=== PATIENT | male | born 1945 | race Caucasian/White ===

== ENCOUNTER 2020-10-06 14:41 | Inpatient (IN) | payer MEDICARE, OTHER, SELFPAY ==
--- NOTE | ~2020-10-06 | XR_ITS ---
EXAMINATION: XR chest 2V DATE: 10/07/2020 18:19 INDICATION: Shortness of breath, pneumonia TECHNIQUE: AP and lateral views of the chest are obtained. COMPARISON: 1104 hours FINDINGS: Right basilar airspace opacities persist without significant change. There is no pleural ef fusion or pneumothorax. The cardiomediastinal silhouette is normal. There is moderate thoracic spondy losis. The nasogastric tube has been removed. IMPRESSION: 1. Stable right basilar airspace opacities, consistent with pneumonia. Reviewed, dictated and finalized at location A. HOLDER
--- NOTE | ~2020-10-06 | XR_ITS ---
EXAMINATION: XR abdomen obstructive series DATE: 10/07/2020 05:57 INDICATION: Small bowel obstruction. TECHNIQUE: Upright and supine views of the abdomen were obtained. COMPARISON: CT abdomen and pelvis 10/06/2020 FINDINGS: There is dilated small bowel in the midabdomen. The colon is decompressed. No free intraper itoneal gas. The nasogastric tube tip is in the stomach. There are airspace opacities in right mid an d lower lung zones. Calcified right lung nodules are consistent with old granulomatous disease. A bip olar right hip hemiarthroplasty is noted. IMPRESSION: 1. Dilated small bowel in the midabdomen, consistent with small bowel obstruction. 2. Airspace opacities in right mid and lower lung zones, consistent with pneumonia. Reviewed, dictated and finalized at location A. ACCOUNTING CLERK IMPRESSION: 1. Dilated small bowel in the midabdomen, consistent with small bowel obstructi on. 2. Airspace opacities in right mid and lower lung zones, consistent with pneumo bautista.
--- NOTE | ~2020-10-06 | XR_ITS ---
EXAMINATION: XR chest 2V DATE: 10/07/2020 11:12 INDICATION: Pneumonia. TECHNIQUE: Frontal and lateral views of the chest were obtained on 3 radiographs. COMPARISON: Chest 2 views 08/21/2018, CT abdomen and pelvis 10/06/2020 FINDINGS: Calcified right lung nodules are consistent with old granulomatous disease. There are airsp tia opacities in right lower lung zone, consistent with pneumonia. No pleural effusion or pneumothora x. The heart size is normal. There is oral contrast in the esophagus and stomach. The distal tip of t he nasogastric tube is not visible, but is at least to the stomach. IMPRESSION: 1. Airspace opacities in right lower lung zone, consistent with pneumonia. Reviewed, dictated and finalized at location A. ER SPECIALISTS
--- NOTE | ~2020-10-06 | XR_ITS ---
EXAMINATION: XR abdomen NG/feed tube insert INDICATION: Nasogastric tube placement, small bowel obstruction. TECHNIQUE: Portable AP KUB-NG at 1944hours COMPARISON: None available FINDINGS: The nasogastric tube is the stomach. There are minimal opacities in the right lung base. IMPRESSION: 1. Nasogastric tube in the stomach. Reviewed, dictated and finalized at location A. TRICAL ELECTRONICS TECHNICIAN
--- NOTE | ~2020-10-06 | CT_ITS ---
EXAMINATION: CT abdomen pelvis w con INDICATION: Epigastric pain TECHNIQUE: Computed tomographic images of the abdomen and pelvis were obtained after the administrati on of 100 cc of Omnipaque 350 intravenous contrast. The dose-length product (DLP) was 804.74 mGy-cm. Automated exposure control and iterative reconstruction technique were employed. COMPARISON: 09/29/2014 FINDINGS: There are patchy airspace opacities of the right middle and lower lobes. The heart size is normal. There is a tiny right posterior diaphragmatic hernia containing fat. The liver, pancreas, gal lbladder, and adrenal glands are normal. Punctate calcifications in an otherwise normal spleen likely represent healed granulomatous disease. There are changes of interval left nephrectomy. A 2 cm cyst is present in the right mid kidney. There are no pathologically enlarged abdominal lymph nodes. The s tomach, duodenum and much of the jejunum are dilated. There is an abrupt transition point in the mida bdomen with decompression of the small bowel beyond the transition point. No free intraperitoneal gas is identified. Small bowel feces sign is seen proximal to the transition point. The appendix is norm al. Colonic diverticulosis is present without evidence of diverticulitis. There are changes of right hip hemiarthroplasty. There is severe lumbar spondylosis. IMPRESSION: 1. Small bowel obstruction with transition point in the midabdomen. 2. Changes of interval left nephrectomy. Reviewed, dictated and finalized at location A. IRATORY COORDINATOR
--- NOTE | ~2020-10-06 | XR_ITS ---
EXAMINATION: XR sm bowel follow through WS EXAM DATE: 10/07/2020 11:12 INDICATION: Small bowel obstruction . TECHNIQUE: [employer] radiograph was acquired. Small bowel series was performed with water-soluble contr ast solution. Spot images of the terminal ileum were acquired. A total of 6 images were obtained wit h 0.0 minutes fluoroscopy time. Relation with CT abdomen pelvis 10/06/2020. FINDINGS: On the 15 minute projection contrast within stomach and moderately distended jejunum. This progresses on the 30 minute and 1 hour projections into the normal calibered ileum. On the 1.5 hour e xam there is a large amount of contrast within the colon. Normal transit time. IMPRESSION: Moderately distended jejunum, normal transit time 1.5 hours. Resolving or partial small bowel obstruction. Reviewed, dictated and finalized at location A. [employer] DES[employer] CON[employer]CTION IMPRESSION: Moderately distended jejunum, normal transit time 1.5 hours. Resol ving or partial small bowel obstruction.
[2020-10-06 15:13] VITALS: BP 132/64; PULSE 98; RESP 20; TEMP 36.8; O2SAT 94
[2020-10-06 15:37] LABS: Basophils Percent Auto 0.3 % (0.2-1.2); Eosinophils Percent Auto 0.2 % (0-4.4); Hematocrit 32.7 % (42.0-52.0); Hemoglobin 10.3 g/dL (14.0-18.0); Immature Granulocyte Absolute 0.08 K/mm3 (0.00-0.031); Immature Granulocyte Percent A 0.6 % (0-0.5); Lymphocytes Absolute Auto 0.63 K/mm3 (0.9-3.2); Lymphocytes Percent Auto 4.4 % (18.3-44.2); Mean Corpuscular HGB Conc 31.5 g/dl (32-36); Mean Corpuscular Hemoglobin 28.1 pg (26-34); Mean Corpuscular Volume 89.1 fl (80-100); Mean Platelet Volume 8.7 fl (7.4-10.4); Monocytes Absolute Auto 0.8 K/mm3 (0.1-0.6); Monocytes Percent Auto 5.4 % (2.6-8.5); Neutrophils Absolute Auto 12.7 K/mm3 (1.3-6.7); Neutrophils Percent Auto 89.1 % (45.5-73.1); Platelet Count Result 505 k/mm3 (150-375); Red Blood Count 3.67 M/mm3 (4.6-6.20); Red Cell Distribution Width 13.3 % (11.5-14.5); White Blood Count 14.2 K/mm3 (4.5-10.0)
[2020-10-06 15:46] LABS: Alanine Aminotransferase 13 U/L (4-50); Albumin Level 3.9 g/dL (3.5-5.1); Alkaline Phosphatase 130 U/L (38-126); Anion Gap 6 mmol/L (8-16); Aspartate Amino Transferase 29 U/L (17-59); Bilirubin,Total 0.3 mg/dL (0.2-1.3); Blood Urea Nitrogen 27 mg/dL (9-20); Calcium 9.1 mg/dL (8.4-10.2); Carbon Dioxide 31 mmol/L (22-30); Chloride 104 mmol/L (98-107); Estimated CRCL calculation 37 ml/min; Estimated Glomerular Filt Rate 37; Glucose 138 mg/dL (75-110); Lipase 230 U/L (23-300); Potassium 4.1 mmol/L (3.4-5.0); Sodium 141 mmol/L (137-145)
--- NOTE | 2020-10-06 17:44 | ED.ABDPAIN ---
HPI - Abdominal Pain General Chief Complaint: Abdominal Pain Stated Complaint: N/V x 1 day, weak Time Seen by Provider: 10/06/20 17:38 History of Present Illness HPI narrative: Patient is a 75-year-old male who presents ER with nausea and vomiting for 1 day. Has not been able To keep down food or water. Associated with epigastric pain/nausea. No fevers or chills or sweats. He has not passed any stool since this began. No history of bowel obstruction diverticulitis. No urinary symptoms. Has taken Pepto-Bismol without relief. Related Data Home Medications Medication Instructions Recorded Confirmed carbidopa-levodopa 2 tablet PO QID 10/06/20 10/06/20 diclofenac sodium 75 mg PO BID 10/06/20 10/06/20 furosemide 20 mg PO DAILY PRN 10/06/20 10/06/20 gemfibrozil 600 mg PO BID 10/06/20 10/06/20 Allergies Allergy/AdvReac Type Severity Reaction Status Date / Time No Known Allergies Allergy Verified 10/06/20 22:04 Review of Systems Review of Systems: All systems reviewed & are unremarkable except as noted in HPI and below Constitutional: Constitutional: Denies chills, Denies fever(s) and Denies weakness ENT: Reports vertigo Cardiovascular: Cardiovascular: Reports no additional cardiovascular complaints and Denies chest pain Respiratory: Respiratory: Denies cough, Denies dyspnea and Denies wheezing Gastrointestinal: Gastrointestinal: Reports abdominal pain, Denies bloating, Denies constipation, Denies heartburn, Denies diarrhea, Reports nausea and Reports vomiting Genitourinary: Genitourinary: Denies hematuria, Denies oliguria, Denies dysuria and Denies urinary frequency [facility] Past Medical History Medical History Chronic kidney disease DVT (deep venous thrombosis) GERD (gastroesophageal reflux disease) History of cancer of kidney in adulthood Hyperlipidemia Parkinsons disease Surgical History Surgical History History of nephrectomy, left 2016 at [facility] for renal mass History of total right hip replacement History of total right knee replacement Family History Family History Mother Aneurysm Social History Social History Years smoked: 0 Smoking status: Never smoker Alcohol intake: current Drinks per week: 2 Substance use: never Living arrangements: alone Occupation/Education: retired Gender identity (if verbalized by the patient): Male Spiritual care concerns: No Exam Narrative: Exam Narrative: GENERAL: Well-appearing, well-nourished, and in no acute distress. HEAD: Normocephalic, atraumatic. ENT: Mucous membranes moist. TMs normal bilaterally. CHEST: Clear to auscultation. No respiratory distress. HEART: Regular rate and rhythm. Normal peripheral pulses. ABDOMEN: Soft, mild epigastric pain without guarding, nondistended. EXTREMITIES: Normal range of motion. 1+ edema. SKIN: Warm, dry, no rash. NEURO: Alert and oriented x3. Resting tremor left upper extremity. PSYCH: Normal mood and affect. Course Course Emergency Course: discussed with surgery. NG and admit to hositalist. Vital Signs Vital signs: Vital Signs Temperature 98.2 F 10/06/20 15:13 Pulse Rate 98 10/06/20 15:13 Respiratory Rate 20 10/06/20 15:13 Blood Pressure 132/64 10/06/20 15:13 Pulse Oximetry 94 10/06/20 15:13 Temperature 97.9 F 10/07/20 19:37 Pulse Rate 78 10/07/20 19:37 Respiratory Rate 18 10/07/20 19:37 Blood Pressure 117/54 L 10/07/20 19:37 Pulse Oximetry 97 10/07/20 19:37 MDM - Abdominal Pain Lab Data Result diagrams: 10/07/20 09:20 10/07/20 09:20 Labs: Lab Results 10/06/20 10/06/20 10/06/20 Range/Units 15:22 15:22 18:21 WBC 14.2 H (4.5-10.0) K/mm3 RBC 3.67 L (4.6-6.20) M/mm3 Hgb
[2020-10-06] MEDS: SODIUM CHLORIDE 0.9% IV 1,000 ML 999 ML IV CONT ×2 (18:27→19:30)
[2020-10-06] MEDS: ONDANSETRON INJ 4 MG/2 ML VIAL IV PUSH (18:27)
[2020-10-06 18:36] VITALS: BP 147/65; PULSE 93; RESP 25; O2SAT 97
[2020-10-06 18:43] LABS: Add Urine Microscopic? YES; Appearance Urine Clear (Clear); Bilirubin Urine Negative (Negative); Blood Urine Negative (Negative); Color Urine Yellow (Yellow); Glucose Urine UA Negative (Negative); Ketones Urine Negative (Negative); Leukocyte Esterase Ur Negative LEU/UL (Negative); Mucus Urine Rare /lpf; Nitrate Urine Negative (Negative); Protein Urine 2+ mg/dL (Negative); RBC Urine 0-2 /hpf (0-2); Specific Grav Ur 1.027 (1.001-1.035); Urobilinogen Urine Negative mg/dL (<2.0); WBC Urine 0-3 /hpf
[2020-10-06] MEDS: MORPHINE SULFATE (*CRX) 4 MG/ML INJ IV PUSH (20:51)
[2020-10-06 21:10] VITALS: BP 152/76; PULSE 93; RESP 23; O2SAT 92
--- NOTE | 2020-10-06 21:30 | ADMGEN ---
This patient, John Mitchell, was admitted to Medical Room 341-01. Patient/family oriented to hospital policies and general routines including ID bracelet, bed and alarms, visiting hours, pain management, procedures, bathroom and other care routines, personal items, smoking policy, room service/diet, and visiting hours. Information on how to activate the Rapid Response Team has been discussed. Patient/Family are encouraged to report perceived risks to care and to ask questions if they do not understand what they are told or what they should do.
--- NOTE | 2020-10-06 21:41 | PC.NURSE ---
Pt sent to 3rd floor with azithromycin still infusing
[2020-10-06 21:56] VITALS: BP 137/70; PULSE 92; RESP 18; TEMP 36.6; O2SAT 99
[2020-10-06 21:57] VITALS: BMI 24.7
--- NOTE | 2020-10-06 22:14 | PM.IMHP ---
H&P: HPI History of Present Illness Date/Time: 10/06/20 22:14 Chief Complaint: nausea and vomiting since yesterday Narrative: This is a pleasant 75 year old male with known Parkinson's disease who presented to the hospital with a complaint of nausea and vomiting since yesterday. He has not been able to tolerate any oral intake. His last meal was yesterday around lunch. He has mild diffuse abdominal pain w/ abdominal distention. His last bowel movement was yesterday. He has no previous history of Ileus or bowel obstruction. His history is significant for a left nephrectomy secondary to a renal mass. He denies any fevers, chills, cough, shortness of breath, chest pain, palpitations, dysuria, hematuria, rectal bleeding, or LE swelling. CT abd/pelvis showed a small bowel obstruction with transition point in the midabdomen. NG tube was placed in the ER. General surgery was consulted by ER provider. We have been asked to admit the patient to the hospital. He has no other complaints tonight. Review of Systems Review of Systems: All systems reviewed & are unremarkable except as noted in HPI and below PMFSH Past Medical History Medical History (Updated 10/06/20 @ 22:42 by Ga Guajardo MD) Chronic kidney disease DVT (deep venous thrombosis) GERD (gastroesophageal reflux disease) Hyperlipidemia Parkinsons disease Surgical History Surgical History (Updated 10/06/20 @ 22:23 by Ga Guajardo MD) History of nephrectomy, left Family History Family History Mother Aneurysm Social History Social History Years smoked: 0 Smoking status: Never smoker Alcohol intake: current Drinks per week: 2 Substance use: never Gender identity (if verbalized by the patient): Male Spiritual care concerns: No Meds Home Medications and Allergies Home Medications Medication Instructions Recorded Confirmed Type carbidopa-levodopa 2 tablet PO QID 10/06/20 10/06/20 History diclofenac sodium 75 mg PO BID 10/06/20 10/06/20 History furosemide 20 mg PO DAILY PRN 10/06/20 10/06/20 History gemfibrozil 600 mg PO BID 10/06/20 10/06/20 History Allergies Allergy/AdvReac Type Severity Reaction Status Date / Time No Known Allergies Allergy Verified 10/06/20 22:04 Vital Signs Vital Signs - 24 hr 10/06/20 15:13 10/06/20 18:36 10/06/20 21:10 Temperature 36.8 C Pulse Rate 98 93 93 Respiratory Rate 20 25 H 23 H Blood Pressure 132/64 147/65 H 152/76 H Pulse Oximetry 94 97 92 10/06/20 21:56 Temperature 36.6 C Pulse Rate 92 Respiratory Rate 18 Blood Pressure 137/70 Pulse Oximetry 99 Exam Const: General: cooperative, no acute distress, alert and awake Nutritional Appearance: well nourished Orientation/consciousness: patient oriented x3 HENMT: Head: normal to inspection General nose exam: Normal external nose present Face and sinus: normal facial exam and other (NG tube in place) Mouth: Yes Normal oral and palatal mucosa present and Yes oropharynx normal Eyes: Pupils: Equal, round and reactive pupils present EOM: EOMs intact bilaterally Neck: Neck: supple and no JVD Thyroid: thyroid normal Lymphatic: lymphadenopathy not noted Resp: Effort & Inspection: normal respiratory effort Auscultation: wheezes Cardio: Rate: tachycardic Rhythm: regular rhythm Heart sounds: no murmurs GI: Inspection: distended GI Palp: Yes abdominal tenderness (diffuse w/ light palpation+ ) Auscultation: normal bowel sounds Rectal Exam: deferred Skin: General skin exam: normal color and no rashes or lesions noted Neuro: General: patient oriented x3 Cranial nerves: Yes CN's II-XII intact bilaterally and Yes Equal, round and reactive pupils present Speech: normal speech Motor exam (neuro): 5/5 motor strength present throughout Sensory Exam: normal sensation Extrem: General: normal to inspection and no edema
[2020-10-07 05:33] VITALS: BP 105/59; PULSE 100; RESP 18; TEMP 36.8; O2SAT 98
--- NOTE | 2020-10-07 08:58 | PM.CNGS ---
Assessment and Plan Assessment and plan (1) Small bowel obstruction: Code(s): K56.609 - Unspecified intestinal obstruction, unspecified as to partial versus complete obstruction Status: Acute Assessment and Plan: CT reviewed and discussed with the patient in detail. He has evidence of a small bowel obstruction. He does have a remote history of having an open left nephrectomy, which is his only previous abdominal surgery. It is possible that intra-abdominal adhesions could be a cause for the obstruction. We will continue to initially treat this with conservative measures, including NG tube decompression, bowel rest, IV fluids, and analgesics. The patient is feeling better and his abdominal exam is benign. I will order labs this morning and also get a Gastrografin small bowel follow through today to further assess the small bowel obstruction. If the contrast moves through to the colon, then we can remove the NG tube and start clear liquids. I discussed with the patient that majority of the time this resolves with conservative measures, but there is a chance that he could require exploratory surgery. The patient verbalized understanding and all questions were answered. We will continue to monitor with serial abdominal exams and imaging as needed. Thank you for allowing us to see the patient in consultation and we will continue to follow along with you. (2) Chronic kidney disease: Qualifiers: Chronic kidney disease stage: stage 3 (moderate) Chronic kidney disease stage 3 subtype: stage 3b (GFR 30-44) Qualified Code(s): N18.32 - Chronic kidney disease, stage 3b Code(s): N18.9 - Chronic kidney disease, unspecified Status: Chronic (3) Parkinsons disease: Code(s): G20 - Parkinson's disease Status: Chronic Additional Plan I discussed the patient's case and plan of care with Dr. Barraza today. History of Present Illness Consult details Consult date: 10/07/20 Reason for consult: other (Small bowel obstruction) Requesting physician: Wallace Espinoza MD Narrative: This is a 75-year-old male with Parkinson's disease and a history of kidney cancer status post left nephrectomy in 2016, who presented to the ER with complaints of nausea and vomiting. The patient reports that after eating lunch two days ago, he had a sudden onset of vomiting. He reports vomiting the rest of the evening. He denies having any abdominal pain or bloating. His symptoms continued yesterday, and his son insisted he come to the ER for further evaluation. CT scan of the abdomen and pelvis showed a small bowel obstruction with transition point in the midabdomen, patchy airspace opacities of the right middle and lower lobes consistent with pneumonia, and changes of interval left nephrectomy. Labs showed a white blood cell count of 14,200. He was admitted to the Hospitalist service, started on IV Azithromycin and Ceftriaxone, and an NG tube was placed. He has had 250 cc output recorded overnight. The patient is seen this morning on the medical floor. He denies any abdominal pain or bloating. His nausea has subsided. He denies passing any gas today or through the night. His last bowel movement was yesterday evening prior to coming into the ER. No changes in his bowel habits. No history of a small bowel obstruction in the past. No other complaints at this time. Review of Systems Constitutional: Constitutional: Reports as per HPI, Denies chills, Denies fatigue, Denies fever(s) and Denies headache(s) Eyes: Eyes: Reports no additional eye complaints and Denies change in vision ENT: Reports Normal hearing present, Denies dizziness and Denies headache(s) Cardiovascular: Cardiovascular: Reports no additional cardiovascular complaints, Denies chest pain, Denies syncope, Denies leg edema and Denies radiating jaw, neck or arm pain Respiratory: Respiratory: Reports no additional respiratory complaints, Denies cough, Denies dyspnea and Denies wheezing
[2020-10-07 09:51] LABS: Hematocrit 32.2 % (42.0-52.0); Mean Corpuscular HGB Conc 31.1 g/dl (32-36); Mean Corpuscular Hemoglobin 28.5 pg (26-34); Mean Corpuscular Volume 91.7 fl (80-100); Mean Platelet Volume 9.2 fl (7.4-10.4); Platelet Count Result 410 k/mm3 (150-375); Red Blood Count 3.51 M/mm3 (4.6-6.20); Red Cell Distribution Width 13.6 % (11.5-14.5); White Blood Count 21.4 K/mm3 (4.5-10.0)
[2020-10-07 10:10] LABS: Lactic Acid Reflex 1.2 mmol/L (0.7-2.1)
[2020-10-07 10:11] LABS: Anion Gap 5 mmol/L (8-16); Blood Urea Nitrogen 22 mg/dL (9-20); Calcium 8.4 mg/dL (8.4-10.2); Carbon Dioxide 32 mmol/L (22-30); Chloride 105 mmol/L (98-107); Estimated CRCL calculation 37 ml/min; Estimated Glomerular Filt Rate 37; Glucose 119 mg/dL (75-110); Potassium 3.9 mmol/L (3.4-5.0); Sodium 142 mmol/L (137-145)
--- NOTE | 2020-10-07 14:04 | PM.IMPN ---
Progress Note: A&P Assessment and Plan (1) Bowel obstruction: Qualifiers: Intestinal obstruction type: unspecified Intestinal obstruction extent: unspecified extent Qualified Code(s): K56.609 - Unspecified intestinal obstruction, unspecified as to partial versus complete obstruction Code(s): K56.609 - Unspecified intestinal obstruction, unspecified as to partial versus complete obstruction Status: Deleted Assessment and Plan: Resolved, small-bowel follow-through appeared normal -will start clear liquids -abdominal pain has improved -unclear etiology (2) Community acquired pneumonia: Code(s): J18.9 - Pneumonia, unspecified organism Status: Acute Assessment and Plan: Chest x-ray consistent with pneumonia -patient has a leukocytosis which could be from reaction of the small-bowel obstruction but could indicate severity of infection -he is on 2 L of oxygen, will wean -he is not really coughing, will likely not be able to produce a sputum sample -will continue ceftriaxone and azithromycin -will check urine antigens (3) Chronic anemia: Code(s): D64.9 - Anemia, unspecified Status: Acute Assessment and Plan: Last hemoglobin 10 and appears chronic -monitor for blood loss (4) Chronic kidney disease: Qualifiers: Chronic kidney disease stage: stage 3 (moderate) Chronic kidney disease stage 3 subtype: stage 3b (GFR 30-44) Qualified Code(s): N18.32 - Chronic kidney disease, stage 3b Code(s): N18.9 - Chronic kidney disease, unspecified Status: Chronic Assessment and Plan: Renal function at baseline -patient has 1 kidney (5) Parkinsons disease: Code(s): G20 - Parkinson's disease Status: Chronic Assessment and Plan: Will resume Sinemet -patient denies any acute worsening of his Parkinson's Time Spent With Patient Time with patient: 25 - 35 minutes Subjective Date/time seen: 10/07/20 14:04 Interval history: Pt is a 75-year-old male here for small bowel obstruction found to have pneumonia. Patient was seen today and states he is feeling much better. He is no longer having the pain in his abdomen and has had bowel movements after his test. He denies chest pain, fevers, chills or shortness of breath. He is not usually on oxygen and does not recall having any cough. No cold contacts. He had the 1st covid vaccine approximately 2 weeks ago. Family at bedside and plan discussed Review of Systems Review of Systems: All systems reviewed & are unremarkable except as noted in HPI and below Exam Narrative: Exam Narrative: General: Well developed well nourished patient in NAD HEENT: normocephalic Neck: supple Neuro: Alert and oriented x4 CV:RRR Resp:CTA with 2 L oxygen applied. No conversational dyspnea or retractions Abd: Soft, non distended. No pain to palpation. Positive bowel sounds Extremities: No swelling, erythema, or pain to palpation. Objective Data Vital Signs Vital Signs: Vital Signs - 24 hr 10/06/20 15:13 10/06/20 18:36 10/06/20 21:10 Temperature 98.2 F Pulse Rate 98 93 93 Respiratory Rate 20 25 H 23 H Blood Pressure 132/64 147/65 H 152/76 H Pulse Oximetry 94 97 92 10/06/20 21:56 10/07/20 05:33 Temperature 98 F 98.3 F Pulse Rate 92 100 Respiratory Rate 18 18 Blood Pressure 137/70 105/59 L Pulse Oximetry 99 98 Intake/Output Intake/Output: Intake & Output 10/04/20 10/05/20 10/06/20 10/07/20 23:59 23:59 23:59 23:59 Intake Total 2049 Output Total 975 Balance 2049 - Meds/Results Medications: Active Medications Generic Name Dose Route Start Last Admin Trade Name Freq PRN Reason Stop Dose Admin Albuterol 5 mg 10/06/20 22:42 Albuterol Sulfate Neb 2.5 Mg/0.5 Ml Inh INHALATION Q4HRT PRN Shortness Of Breath Ceftriaxone Sodium/Dextrose 1 gm in 50 mls @ 100 mls/hr 10/07/20 18:00 Rocephin 1 Gm/D5w 50 Ml IVPB
[2020-10-07 14:09] VITALS: BP 125/70; PULSE 71; RESP 16; TEMP 36.7; O2SAT 100
[2020-10-07] MEDS: gemfibroziL 600 MG TABLET PO (18:23)
[2020-10-07] MEDS: CARBIDOPA/LEVODOPA 25/100 MG TABLET 2 TABLET PO ×2 (18:23→20:59)
[2020-10-07 19:02] VITALS: PULSE 71; RESP 16; O2SAT 100
[2020-10-07 19:37] VITALS: BP 117/54; PULSE 78; RESP 18; TEMP 36.6; O2SAT 97
[2020-10-08 04:01] VITALS: BP 142/48; PULSE 72; RESP 18; TEMP 36.6; O2SAT 98
[2020-10-08] MEDS: gemfibroziL 600 MG TABLET PO (05:38)
[2020-10-08 05:44] LABS: Basophils Absolute Auto 0.1 K/mm3 (0.0-0.1); Basophils Percent Auto 0.7 % (0.2-1.2); Eosinophils Absolute Auto 0.4 K/mm3 (0-0.3); Eosinophils Percent Auto 4.3 % (0-4.4); Hematocrit 29.5 % (42.0-52.0); Hemoglobin 9.1 g/dL (14.0-18.0); Immature Granulocyte Absolute 0.03 K/mm3 (0.00-0.031); Immature Granulocyte Percent A 0.4 % (0-0.5); Lymphocytes Absolute Auto 1.01 K/mm3 (0.9-3.2); Mean Corpuscular HGB Conc 30.8 g/dl (32-36); Mean Corpuscular Volume 90.8 fl (80-100); Mean Platelet Volume 9.3 fl (7.4-10.4); Monocytes Absolute Auto 0.6 K/mm3 (0.1-0.6); Monocytes Percent Auto 7.6 % (2.6-8.5); Neutrophils Absolute Auto 6.3 K/mm3 (1.3-6.7); Platelet Count Result 345 k/mm3 (150-375); Red Blood Count 3.25 M/mm3 (4.6-6.20); Red Cell Distribution Width 13.2 % (11.5-14.5); White Blood Count 8.4 K/mm3 (4.5-10.0)
[2020-10-08 06:01] LABS: Anion Gap 5 mmol/L (8-16); Blood Urea Nitrogen 25 mg/dL (9-20); Calcium 8.6 mg/dL (8.4-10.2); Carbon Dioxide 30 mmol/L (22-30); Chloride 105 mmol/L (98-107); Estimated CRCL calculation 42 ml/min; Estimated Glomerular Filt Rate 42; Glucose 96 mg/dL (75-110); Potassium 3.8 mmol/L (3.4-5.0); Sodium 140 mmol/L (137-145)
[2020-10-08] MEDS: CARBIDOPA/LEVODOPA 25/100 MG TABLET 2 TABLET PO ×2 (08:58→12:30)
--- NOTE | 2020-10-08 10:32 | PM.DS ---
DS: Admitting Diagnosis Admitting Diagnosis Admitting Diagnosis: sbo, pna DS: Discharge Diagnosis Discharge Diagnosis (1) Bowel obstruction: Qualifiers: Intestinal obstruction type: unspecified Intestinal obstruction extent: unspecified extent Qualified Code(s): K56.609 - Unspecified intestinal obstruction, unspecified as to partial versus complete obstruction Code(s): K56.609 - Unspecified intestinal obstruction, unspecified as to partial versus complete obstruction Status: Deleted Assessment and Plan: Resolved, small-bowel follow-through appeared normal -was tolerating a regular diet discharge -abdominal pain has resolved -had a bowel movement the day of discharge (2) Community acquired pneumonia: Code(s): J18.9 - Pneumonia, unspecified organism Status: Acute Assessment and Plan: Chest x-ray consistent with pneumonia -patient has a leukocytosis which could be from reaction of the small-bowel obstruction but could indicate severity of infection -he was initially on oxygen but this was weaned -he is not really coughing, unable to get sputum sample -finish antibiotics outpatient - urine antigens pending and will be monitored until resulted (3) Chronic anemia: Code(s): D64.9 - Anemia, unspecified Status: Acute Assessment and Plan: Last hemoglobin 9.1 and appears chronic -signs of blood loss during hospitalization (4) Chronic kidney disease: Qualifiers: Chronic kidney disease stage: stage 3 (moderate) Chronic kidney disease stage 3 subtype: stage 3b (GFR 30-44) Qualified Code(s): N18.32 - Chronic kidney disease, stage 3b Code(s): N18.9 - Chronic kidney disease, unspecified Status: Chronic Assessment and Plan: Renal function at baseline -patient has 1 kidney (5) Parkinsons disease: Code(s): G20 - Parkinson's disease Status: Chronic Assessment and Plan: Chronic -patient denies any acute worsening of his Parkinson's DS: Summary Hospital Course Hospital Course: Patient is 75-year-old male who presented emergency room for nausea vomiting and abdominal pain. Temperature in the ER were 98.2, pulse 98, respiratory rate 20, blood pressure 132/64, pulse ox 90 for although there was reports of hypoxia so oxygen was placed. Labs in the ER were white blood cell count 14.2, hemoglobin 10.3, hematocrit 32.7, platelets 505. BMP showed chronic kidney disease but no electrolyte abnormalities. UA negative for infection. CT of the abdomen pelvis showed small-bowel obstruction with transition point in the mid abdomen which changes of left nephrectomy as well as patchy airspace opacities in the right middle and lower lobes consistent with pneumonia. Patient was admitted to the hospitalist service and was kept NPO and started on ceftriaxone and azithromycin for his pneumonia. COVID-19 was not suspected on imaging or history. The patient did well with the bowel rest and underwent a small-bowel follow-through which was normal. His diet was slowly increased and the day of discharge he was eating a regular diet and having bowel movements. He had no significant cough or weakness. His white blood cell count improved to normal the day of discharge. He was sent home on oral antibiotics for the continuation of treatment of his pneumonia. Overall, the patient improved during his stay. He was educated about the worrisome signs and symptoms come back to emergency room for as well as follow-up and was discharged in stable condition. Status at Discharge Overall status at discharge: patient is back to baseline Time Spent with Patient Time attestation: Total time spent providing and/or coordinating discharge services:34 min Time spent: Greater than 30 minutes Exam Narrative: Exam Narrative: General: Well developed well nourished patient in NAD HEENT: normocephalic Neck: supple Neuro: Alert and oriented x4
--- NOTE | 2020-10-08 10:47 | PM.PNGS ---
Progress Note: A&P Assessment and Plan (1) Small bowel obstruction: Code(s): K56.609 - Unspecified intestinal obstruction, unspecified as to partial versus complete obstruction Status: Acute Assessment and Plan: SBFT showed contrast going through to the colon. NG removed and advancing diet. Bowels are moving. Advanced to soft diet for lunch and okay with our service to discharge patient later today if tolerating diet. Recommended using Miralax daily as needed to keep a regular bowel regimen. Continue low fiber diet x 2 weeks then may return to regular diet. (2) Chronic kidney disease: Qualifiers: Chronic kidney disease stage: stage 3 (moderate) Chronic kidney disease stage 3 subtype: stage 3b (GFR 30-44) Qualified Code(s): N18.32 - Chronic kidney disease, stage 3b Code(s): N18.9 - Chronic kidney disease, unspecified Status: Chronic (3) Parkinsons disease: Code(s): G20 - Parkinson's disease Status: Chronic Additional Plan I discussed the patient's plan of care with Dr. Barraza today. Subjective Subjective Date/Time Seen: 10/08/20 10:47 Patient reports: no new complaints, feels better, flatus and bowel movement Interval history: Patient feeling well today. No nausea, vomiting, or bloating. No abdominal pain. Tolerating full liquids. Bowel movement this morning and a few yesterday. Review of Systems Review of Systems: All systems reviewed & are unremarkable except as noted in HPI and below Exam Const: General: no acute distress, alert and awake Orientation/consciousness: patient oriented x3 GI: Inspection: normal to inspection and non-distended GI Palp: Yes Soft to palpation and No Tenderness to palpation present (GI) Auscultation: normal bowel sounds Skin: General skin exam: normal color Neuro: General: moves all extremities and no focal motor deficits Extrem: General: no clubbing, cyanosis or edema Psych: Mental Status: mental status grossly normal Insight: Good insight present (Psych) Judgement: Good judgement present (Psych) Objective Data Vital Signs Vital Signs: Vital Signs - 24 hr 10/07/20 14:09 10/07/20 19:02 10/07/20 19:37 Temperature 98.1 F 97.9 F Pulse Rate 71 71 78 Respiratory Rate 16 16 18 Blood Pressure 125/70 117/54 L Pulse Oximetry 100 100 97 10/08/20 04:01 Temperature 98 F Pulse Rate 72 Respiratory Rate 18 Blood Pressure 142/48 H Pulse Oximetry 98 Intake/Output Intake/Output: Intake & Output 10/05/20 10/06/20 10/07/20 10/08/20 23:59 23:59 23:59 23:59 Intake Total 2300 1190 490 Output Total 1625 400 Balance 2300 -435 90 Meds/Results Medications: Active Medications Generic Name Dose Route Start Last Admin Trade Name Freq PRN Reason Stop Dose Admin Albuterol 5 mg 10/06/20 22:42 Albuterol Sulfate Neb 2.5 Mg/0.5 Ml Inh INHALATION Q4HRT PRN Shortness Of Breath Bisacodyl 10 mg 10/08/20 10:37 Bisacodyl 10 Mg Suppository RECTAL QAM PRN Constipation Carbidopa/Levodopa 2 tablet 10/07/20 17:00 10/08/20 08:58 Carbidopa/Levodopa 25/100 Mg Tablet PO 2 tablet QID CHRISTEN Administration Furosemide 20 mg 10/07/20 14:10 Furosemide 20 Mg Tablet PO DAILY PRN Edema Gemfibrozil 600 mg 10/07/20 16:30 10/08/20 05:38 Gemfibrozil 600 Mg Tablet PO 600 mg BIDAC CHRISTEN Administration Ceftriaxone Sodium/Dextrose 1 gm in 50 mls @ 100 mls/hr 10/07/20 18:00 10/07/20 18:53 Rocephin 1 Gm/D5w 50 Ml IVPB Infused Q24H CHRISTEN Infusion Azithromycin 500 mg in 250 mls @ 250 mls/hr 10/07/20 21:00 10/07/20 21:59 Zithromax IVPB Infused Q24H CHRISTEN Infusion Morphine Sulfate 4 mg 10/06/20 20:26 10/06/20 20:51 Morphine Sulfate (*Crx) 4 Mg/Ml Inj IV PUSH 4 mg Q2H PRN Administration Pain Rated 7-10 Promethazine HCl 12.5 mg 10/06/20 20:26 Promethazine Hcl 25 Mg/Ml Ampul IV PUSH Q6H PRN Nausea Radiology Results: ITS Impres
[2020-10-11 19:43] LABS: Pneumococcal Antigen Urine Not Detected (Not Detected)
[2020-10-12 07:48] LABS: Legionella pneumophila Ag Ur Not Detected (Not Detected)
--- NOTE | 2020-10-15 08:32 | PC.NURSE ---
URIne legionella and pneumococcal are negative.
== END 2020-10-08 13:26 | disposition home or self-care (01) | DRG 388 ==
LOC: ANHED 17:41 → ANH3MED 20:57
PROVIDERS: Emergency Medicine; Nurse Practitioner Family; Physician Assistant; Admitting Provider Family Medicine; Emergency Provider Emergency Medicine; PCP Family Medicine; Visit Provider Internal Medicine
DX: K56.609 Unspecified intestinal obstruction, unspecified as to partial versus complete obstruction (principal); J18.9 Pneumonia, unspecified organism; D64.9 Anemia, unspecified; G20 Parkinson's disease; K21.9 Gastro-esophageal reflux disease without esophagitis; E78.5 Hyperlipidemia, unspecified; N18.32 Chronic kidney disease, stage 3b; Z79.899 Other long term (current) drug therapy; Z90.5 Acquired absence of kidney; Z85.528 Personal history of other malignant neoplasm of kidney; Z86.718 Personal history of other venous thrombosis and embolism
CPT/HCPCS: 36415; 71046; 74019; 74177; 74250; 80048; 80053; 81001; 83605; 83690; 85025; 85027; 87449; 87899; 96361; 96365; 96374; 96375; 99285; A9270; G0378; J0131; J0456; J0696; J2270; J2405; J7030; Q9967

== ENCOUNTER 2021-11-02 18:40 | Emergency (ER) | payer OTHER, SELFPAY ==
[2021-11-02] VITALS (11 sets, daily range): BP systolic 130–163; BP diastolic 76–91; PULSE 75–93; RESP 14–23; TEMP 37; O2SAT 95–97
--- NOTE | ~2021-11-02 | XR_ITS ---
EXAMINATION: XR chest 1V DATE: 11/02/2021 19:23 INDICATION: Right-sided weakness. TECHNIQUE: A single frontal view of the chest was obtained. COMPARISON: Chest 2 views 10/07/2020, CT abdomen and pelvis 10/06/2020 FINDINGS: Calcified right lung nodules are consistent with old granulomatous disease. There are airsp tia opacities in the lower lung zones. No pleural effusion or pneumothorax. The heart size is normal. IMPRESSION: 1. Airspace opacities in the lower lung zones, consistent with atelectasis versus pneumonia. Reviewed, dictated and finalized at location A. IMPRESSION: 1. Airspace opacities in the lower lung zones, consistent with atelectasis vers us pneumonia.
--- NOTE | ~2021-11-02 | CT_ITS ---
EXAMINATION: CTA brain carotid DATE: 11/02/2021 19:28 INDICATION: Right hemiparesis. TECHNIQUE: Computed tomographic angiography (CTA) of the head was performed without and with 100 mL O mnipaque-350 intravenous contrast. CTA of the neck was performed with intravenous contrast. Automated exposure control and iterative reconstruction technique were employed. The dose-length product was 2 042.14 mGy-cm. Maximum intensity projection and volume rendered 3D-reconstructions were created by wil tafoya technologist on a separate workstation. COMPARISON: Head CT 08/21/2018, brain MRI 08/22/2018 FINDINGS: HEAD CTA: There is chronic cystic encephalomalacia in the deep white matter of the left frontal and p arietal lobes. There are patchy infarcts in the left frontal and parietal lobes. There are scattered small calcifications at the cortex of the left frontal and parietal lobes that are new from the prior exam. There are scattered areas of low attenuation in the cerebral white matter. There is no intracr anial hemorrhage or abnormal mass lesion. The ventricles are normal in size. Cavum septum callosum an d vergae are noted. There are likely changes of ocular lens replacement surgeries. There is mild muco blu thickening in the paranasal sinuses. The mastoid air cells are normal. The vertebral arteries are codominant. There is no significant stenosis of basilar artery or the posterior cerebral arteries. P osterior communicating arteries are not identified. Right A1 anterior cerebral artery segment is smal l or absent, a normal variant. There is no significant stenosis of the intracranial internal carotid arteries or anterior cerebral arteries or proximal middle cerebral arteries. There are multiple small calcifications in the area of cortical branches of left middle cerebral artery that are new from the prior exam. Anterior communicating artery is normal. There is no aneurysm. NECK CTA: Calcified right lung nodules are consistent with old granulomatous disease. There are no pa thologically enlarged lymph nodes. There is no significant stenosis of the vertebral arteries. There is plaque in the proximal internal carotid arteries. There is 0% stenosis of the proximal right inter nal carotid artery relative to normal distal artery lumen diameter (NASCET criteria). There is 0% giselle nosis of the proximal left internal carotid artery relative to normal distal artery lumen diameter. T here is severe cervical spondylosis. IMPRESSION: 1. Age-indeterminate patchy infarcts in left frontal and parietal lobes in the expected distribution of left middle cerebral artery. 2. Chronic cystic encephalomalacia involving the left frontal and parietal deep white matter. 3. Multiple small calcifications in the area of cortical branches of left middle cerebral artery that are new from the prior exam, which may be emboli. 4. Mild nonspecific cerebral white matter disease, which likely represents chronic small vessel ische crescencio disease. 5. 0% stenosis of the proximal internal carotid arteries relative to normal distal artery lumen diame ters (NASCET criteria). Reviewed, dictated and finalized at location A. IMPRESSION: 1. Age-indeterminate patchy infarcts in left frontal and parietal lobes in the expected distribution of left middle cerebral artery. 2. Chronic cystic encephalomalacia involving the left frontal and parietal deep white matter. 3. Multiple small calcifications in the area of cortical branches of left middl e cerebral artery that are new from the prior exam, which may be emboli. 4. Mild nonspecific cerebral white matter disease, which likely represents professional programmer analyst socrates small vessel ischemic disease. 5. 0% stenosis of the proximal internal carotid arteries relative to normal dis daksha artery lumen diameters (NASCET
--- NOTE | 2021-11-02 18:51 | ECG_ITS ---
Measurements Intervals [place] Rate: 86 P: 35 FL: 183 QRS: 62 QRSD: 115 T: 6 QT: 390 QTc: 469 Interpretive Statements SINUS RHYTHM WITH FREQUENT SUPRAVENTRICULAR PREMATURE COMPLEXES MODERATE INTRAVENTRICULAR CONDUCTION DELAY [110+ ms QRS DURATION] ABNORMAL RHYTHM ECG NO PREVIOUS ECG AVAILABLE FOR COMPARISON Electronically Signed On 11-10-2021 18:42:30 CDT by Coretta Duff M.D.
--- NOTE | 2021-11-02 18:54 | ECG_ITS ---
Measurements Intervals [place] Rate: 82 P: 66 OR: 196 QRS: 62 QRSD: 120 T: 6 QT: 406 QTc: 475 Interpretive Statements SINUS RHYTHM WITH OCCASIONAL SUPRAVENTRICULAR PREMATURE COMPLEXES MODERATE INTRAVENTRICULAR CONDUCTION DELAY [110+ ms QRS DURATION] NONSPECIFIC T-WAVE ABNORMALITY BASELINE ARTIFACT BORDERLINE ECG NO PREVIOUS ECG AVAILABLE FOR COMPARISON Electronically Signed On 11-03-2021 15:33:34 CDT by Jabari Tony M.D.
[2021-11-02 19:10] LABS: Estimated CRCL calculation 46 ml/min; Estimated Glomerular Filt Rate 49
[2021-11-02 19:37] LABS: Basophils Percent Auto 0.4 % (0.2-1.2); Eosinophils Absolute Auto 0.1 K/mm3 (0-0.3); Eosinophils Percent Auto 1.2 % (0-4.4); Hemoglobin 12.5 g/dL (14.0-18.0); Immature Granulocyte Absolute 0.02 K/mm3 (0.00-0.031); Immature Granulocyte Percent A 0.2 % (0-0.5); Lymphocytes Absolute Auto 0.55 K/mm3 (0.9-3.2); Mean Corpuscular HGB Conc 31.3 g/dl (32-36); Mean Corpuscular Volume 92.8 fl (80-100); Mean Platelet Volume 9.2 fl (7.4-10.4); Monocytes Absolute Auto 0.6 K/mm3 (0.1-0.6); Monocytes Percent Auto 6.7 % (2.6-8.5); Neutrophils Absolute Auto 7.8 K/mm3 (1.3-6.7); Neutrophils Percent Auto 85.5 % (45.5-73.1); Platelet Count Result 353 k/mm3 (150-375); Red Blood Count 4.31 M/mm3 (4.6-6.20); Red Cell Distribution Width 18.9 % (11.5-14.5); White Blood Count 9.2 K/mm3 (4.5-10.0)
[2021-11-02 19:47] LABS: Alanine Aminotransferase 6 U/L (4-50); Alkaline Phosphatase 120 U/L (38-126); Anion Gap 8 mmol/L (8-16); Aspartate Amino Transferase 31 U/L (17-59); Bilirubin,Total 0.3 mg/dL (0.2-1.3); Blood Urea Nitrogen 20 mg/dL (9-20); Carbon Dioxide 28 mmol/L (22-30); Chloride 108 mmol/L (98-107); Estimated CRCL calculation 46 ml/min; Estimated Glomerular Filt Rate 49; Glucose 112 mg/dL (65-110); Potassium 3.9 mmol/L (3.4-5.0); Prothrombin Time 12.9 Seconds (11.1-14.7); Sodium 144 mmol/L (137-145)
[2021-11-02 19:48] LABS: Partial Thromboplastin Time 33.1 SECONDS (22.3-36.8)
[2021-11-02 19:52] LABS: Glucose Point of Care 117 mg/dl (65-105)
[2021-11-02 20:00] LABS: Troponin I 0.282 ng/mL (0.000-0.034)
--- NOTE | 2021-11-02 20:03 | ED.GENADULT ---
HPI - General Adult General Chief complaint: Fall Stated complaint: RIGHT SIDED WEAKNESS Time Seen by Provider: 11/02/21 18:47 Source: patient and family Mode of arrival: EMS Limitations: no limitations History of Present Illness HPI narrative: 76-year-old with a history of Parkinson's was brought in from home with complaints of fall this afternoon. As per the patient at this time patient was trying to get out of the bathroom his right leg gave way and he fell and was laying on the floor for 4 hours , patient initially refused transport to the ER, now he is unable to move his right upper and lower extremity. He denies any headache, chest pain neck pain. Onset (ago): hour(s) (8) Severity: moderate Exacerbating factors: none Associated symptoms: denies other symptoms Related Data Home Medications Medication Instructions Recorded Confirmed carbidopa-levodopa 2 tablet PO QID 10/06/20 10/06/20 diclofenac sodium 75 mg PO BID 10/06/20 10/06/20 gemfibrozil 600 mg PO BID 10/06/20 10/06/20 ferrous sulfate [FeroSul] 325 mg PO BID 11/03/21 pantoprazole 40 mg PO DAILY 11/03/21 rasagiline 1 mg PO DAILY 11/03/21 Allergies Allergy/AdvReac Type Severity Reaction Status Date / Time No Known Allergies Allergy Verified 11/03/21 09:50 Review of Systems Review of Systems: All systems reviewed & are unremarkable except as noted in HPI and below Constitutional: Constitutional: Reports no additional constitutional complaints Eyes: Eyes: Reports no additional eye complaints ENT: Reports system reviewed and no additional complaints, except as documented Cardiovascular: Cardiovascular: Reports no additional cardiovascular complaints Respiratory: Respiratory: Reports no additional respiratory complaints Gastrointestinal: Gastrointestinal: Reports no additional gastrointestinal complaints Musculoskeletal: Musculoskeletal: Reports no additional musculoskeletal complaints Neurologic: Reports as per HPI [facility] Past Medical History Medical History Chronic kidney disease DVT (deep venous thrombosis) GERD (gastroesophageal reflux disease) History of cancer of kidney in adulthood Hyperlipidemia Parkinsons disease Surgical History Surgical History History of nephrectomy, left 2016 at [facility] for renal mass History of total right hip replacement History of total right knee replacement Family History Family History Mother Aneurysm Social History Social History Years smoked: 0 Smoking status: Never smoker Alcohol intake: current Drinks per week: 2 Substance use: never Gender identity (if verbalized by the patient): Male Spiritual care concerns: No Exam Narrative: GENERAL: Well-appearing, well-nourished, and in no acute distress. HEAD: Normocephalic, atraumatic. EYES: PERRLA and EOMI. ENT: Nares clear, no rhinorrhea or epistaxis. Mucous membranes moist. NECK: Supple. CHEST: Clear to auscultation. No respiratory distress. HEART: Regular rate and rhythm. No murmur heard. Normal peripheral pulses. ABDOMEN: Soft, nontender, nondistended, normal active bowel sounds. EXTREMITIES: Normal range of motion. No edema. SKIN: Warm, dry, no rash. NEURO: . Alert and oriented x3.flacid on the rightside PSYCH: Normal mood and affect. Course Course Emergency Course: Patient upon arrival was then taken to CAT scan which did not show any acute stroke or bleed no occlusion. Informed patient and the son who is at bedside about his lab work, CT scan we do not have neurology at this time in this hospital. We will transfer to [facility]. I discussed with Dr. Gissel MARIN Neurology accepted pt in transfer . I resumed care of this patient this morning with pending transfer. No beds availabl
--- NOTE | 2021-11-02 22:30 | PC.NURSE ---
Pt accepted to [facility] by Dr. Chauhan. No beds available at this time per Dr. Duffy
[2021-11-03] VITALS (50 sets, daily range): BP systolic 144–184; BP diastolic 60–96; PULSE 75–104; RESP 12–28; TEMP 36.7; O2SAT 91–99
--- NOTE | 2021-11-03 07:10 | PC.NURSE ---
Patient report received from DIDIER Moyer. All questions answered and care of pt assumed.
--- NOTE | 2021-11-03 08:45 | PC.NURSE ---
Bedside swallow assessment completed with 3 oz of water. Patient noted to have a slight cough at the end of the swallowing assessment. Prior to allowing patient to eat breakfast assessment repeated. Patient noted to have a small amount of throat clearing between swallows. MD made aware and verbal order received for bedside swallowing eval per Speech Therapy. Therapy contact and message left. Awaiting return phone call. Patient and family updated and agreeable to this plan.
--- NOTE | 2021-11-03 09:25 | PC.NURSE ---
Contacted [facility] access line to enquire about bed situation. [facility] is at capacity and there is currently no ETA for transfer. Patient and family updated.
--- NOTE | 2021-11-03 10:28 | PC.NURSE ---
Speech Therapy at bedside to completed swallow evaluation.
--- NOTE | 2021-11-03 10:49 | PCSTNOTE ---
Please refer to the Bedside Swallow Evaluation in the EMR. Please note, silent aspiration cannot be ruled out at bedside.
--- NOTE | 2021-11-03 11:00 | PC.NURSE ---
Spoke with Aleida Speech Therapist regarding patient's speech eval results. Per Aleida, patient may have regular diet and does not require thickening liquids. Lunch ordered. Patient placed on regular patient bed with air mattress for comfort.
[2021-11-03 12:49] LABS: Anion Gap 8 mmol/L (8-16); Blood Urea Nitrogen 19 mg/dL (9-20); Calcium 8.9 mg/dL (8.4-10.2); Carbon Dioxide 26 mmol/L (22-30); Chloride 108 mmol/L (98-107); Estimated CRCL calculation 46 ml/min; Estimated Glomerular Filt Rate 49; Glucose 182 mg/dL (65-110); Potassium 3.8 mmol/L (3.4-5.0); Sodium 142 mmol/L (137-145)
[2021-11-03 13:03] LABS: SARS-CoV-2 RNA PCR Negative
--- NOTE | 2021-11-03 14:25 | PC.NURSE ---
Patient repositioned in bed. Son remains at bedside. Son spoke to EDP about transferring patient to another facility. ER MD to request bed at [facility]. Awaiting bed assignment. Will continue to monitor.
--- NOTE | 2021-11-03 14:46 | PHAR ---
RX [id number] LUCAS*[facility] BOTTLE IDENTIFIED TO CONTAIN DRUG NAME: RASAGILINE INGREDIENTS: RASAGILINE -- 1 MG RELATED DOCUMENTS: DRUGDEX EVALUATIONS - RASAGILINE COLOR: WHITE SHAPE: WHITE MOUNTAIN IMPRINT: 1 FORM: ORAL TABLET
[2021-11-03] MEDS: CARBIDOPA/LEVODOPA 25/100 MG TABLET 2 TABLET PO (15:20)
[2021-11-03] MEDS: FERROUS SULFATE 324 MG TABLET PO (15:21)
[2021-11-03] MEDS: DICLOFENAC SOD 75 MG TABLET.EC PO (15:21)
[2021-11-03] MEDS: PANTOPRAZOLE 40 MG TABLET PO (15:26)
--- NOTE | 2021-11-03 15:43 | PC.NURSE ---
crystal accepted transfer to [facility] [id number] [id number] trip # [id number]
--- NOTE | 2021-11-03 15:50 | PC.NURSE ---
attempted to call report on pt. rn busy. to call back.
== END 2021-11-03 16:25 | disposition short-term general hospital (02) ==
PROVIDERS: Emergency Provider Family Medicine; PCP Family Medicine
DX: I63.9 Cerebral infarction, unspecified (principal); Z20.822 Contact with and (suspected) exposure to COVID-19; R90.82 White matter disease, unspecified; N18.9 Chronic kidney disease, unspecified; K21.9 Gastro-esophageal reflux disease without esophagitis; G20 Parkinson's disease
CPT/HCPCS: 36415; 70496; 70498; 71045; 80048; 80053; 82948; 84484; 85025; 85610; 85730; 93005; 99285; A9270; C9803; Q9967; U0003; U0005

== ENCOUNTER 2021-12-21 17:30 | Inpatient (IN) | payer MEDICARE, SELFPAY ==
[2021-12-21] VITALS (13 sets, daily range): BP systolic 100–184; BP diastolic 57–104; PULSE 33–78; RESP 0–35; TEMP 36.6; O2SAT 92–100; BMI 23.3
--- NOTE | ~2021-12-21 | XR_ITS ---
EXAMINATION: XR chest 2V Exam Date/Time: 12/24/2021 15:55 CDT HISTORY: 24 hours post pacemaker insertion Comparison: 12/23/2021. RESULT: Lines, tubes, and devices: Left chest pacer with intact leads. Lungs and pleura: Persistent atelectasis/scar in the left medial lung base. Cardiomediastinal silhouette: Stable cardiomediastinal silhouette. Other: No acute osseous or upper abdominal finding. IMPRESSION: No acute cardiopulmonary process. Reviewed, dictated and finalized at location K.
--- NOTE | ~2021-12-21 | XR_ITS ---
EXAMINATION: XR chest 1V portable Exam Date/Time: 12/21/2021 17:45 CDT HISTORY: chest pain, EPISODE OF UNRESPONSIVENESS Comparison: 11/02/2021. RESULT: Lines, tubes, and devices: Electronic device over the left chest, presumably external to the patient . Lungs and pleura: Senescent changes. Cardiomediastinal silhouette: Stable cardiomediastinal silhouette. Other: No acute osseous or upper abdominal finding. IMPRESSION: No acute cardiopulmonary process. Reviewed, dictated and finalized at location K.
--- NOTE | ~2021-12-21 | XR_ITS ---
EXAMINATION: XR chest 1V portable INDICATION: Pacemaker insertion TECHNIQUE: Portable AP chest at 1620 hours COMPARISON: 12/21/2021 FINDINGS: A dual-lead cardiac pacemaker of the left chest wall ends with leads in expected locations. There is no pleural effusion or pneumothorax. The lungs are free of acute opacities. The heart size is normal. IMPRESSION: 1. Pacemaker insertion without acute cardiopulmonary abnormality. Reviewed, dictated and finalized at location A.
--- NOTE | ~2021-12-21 | CT_ITS ---
EXAMINATION: CT abdomen pelvis wo con DATE: 12/21/2021 18:08 INDICATION: abd pain TECHNIQUE: Computed tomography (CT) of the abdomen and pelvis was performed without intravenous contr ast. Automated exposure control and iterative reconstruction technique were employed. The dose-length product was 961.60 mGy-cm. COMPARISON: 10/06/2020 FINDINGS: Lower thorax: Right lower lobe granuloma. Bibasilar atelectasis. Mitral annulus calcification. Mild c ardiomegaly. Liver: Normal. Biliary/Gallbladder: Gallbladder is normal. No bile duct dilation. Pancreas: No mass or duct dilation. Spleen: Normal. Adrenals:No mass. Kidneys: Left nephrectomy. Right mid pole exophytic lesion, too small to characterize but most likely represents a cyst. Right upper pole simple cyst. Nonobstructive punctate midpole calculus. No other mass or hydronephrosis GI tract: Diverticulosis without diverticulitis. No obstruction. Normal appendix. Mesentery/Peritoneum: No ascites, mass, or free air. Retroperitoneum: No mass. Atherosclerotic abdominal arterial calcifications. Pelvis: Partially visualized right hip arthroplasty, without obvious hardware complication, causes si gnificant artifact in the pelvis. Bladder wall thickening and bladder distention likely secondary to outlet obstruction from marked prostatomegaly. Soft Tissues: Soft tissues and body wall unremarkable. Bones: No acute osseous finding. IMPRESSION: No acute abdominopelvic process detected. Reviewed, dictated and finalized at location K.
--- NOTE | ~2021-12-21 | CT_ITS ---
EXAMINATION: CT brain wo con DATE: 12/21/2021 18:08 INDICATION: ams . TECHNIQUE: Computed tomography (CT) of the head was performed without intravenous contrast. The mA wa s adjusted according to patient size. Iterative reconstruction technique was employed. The dose-lengt h product was 681.00 mGy-cm. COMPARISON: 11/02/2021 FINDINGS: No acute intracranial hemorrhage or extra-axial fluid collection. No hydrocephalus, mass, or herniation. No acute ischemic infarct. Unremarkable dural venous sinus attenuation. No acute osseous abnormality. Right frontal and sphenoid retention cysts/polyps, otherwise the aerated spaces are clear. Moderate atrophy and chronic white matter change. Cavum septum pellucidum. Unchanged left frontal and parietal sulcal calcifications, patchy old infarcts, and focal areas of encephalomalacia. Bilateral lens replacements. Intracranial arterial calcifications. IMPRESSION: No acute intracranial process. Reviewed, dictated and finalized at location K.
--- NOTE | 2021-12-21 17:36 | ECG_ITS ---
Measurements Intervals [place] Rate: 34 P: SD: 0 QRS: 49 QRSD: 114 T: 23 QT: 563 QTc: 427 Interpretive Statements SINUS RHYTHM WITH COMPLETE HEART BLOCK SLOW JUNCTIONAL ESCAPE RHYTHM INTRAVENTRICULAR CONDUCTION DELAY BASELINE ARTIFACT- I, II, III, AVR, AVL, AVF, V1 ABNORMAL ECG Electronically Signed On 12-21-2021 20:16:34 CDT by Eloy Dobbs D.O.
--- NOTE | 2021-12-21 17:40 | ED.AMS ---
HPI - Altered Mental Status General Chief Complaint: Altered Mental Status Stated Complaint: unresponsive Source: RN notes reviewed History of Present Illness HPI narrative: Patient presents emergency department from [facility] via EMS for altered mental status. History is per EMS and patient called out to find patient with altered mental status patient was found unresponsive in his bed. At that time EKG was performed that showed third-degree heart block. 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 Related Data Home Medications Medication Instructions Recorded Confirmed carbidopa-levodopa 2 tablet PO QID 10/06/20 10/06/20 diclofenac sodium 75 mg PO BID 10/06/20 10/06/20 gemfibrozil 600 mg PO BID 10/06/20 10/06/20 ferrous sulfate [FeroSul] 325 mg PO BID 11/03/21 pantoprazole 40 mg PO DAILY 11/03/21 rasagiline 1 mg PO DAILY 11/03/21 Allergies Allergy/AdvReac Type Severity Reaction Status Date / Time No Known Allergies Allergy Verified 11/03/21 09:50 Review of Systems Review of Systems: Gen.: Denies fevers or chills ENT: Denies congestion Respiratory: Denies shortness of breath or cough CV: See HPI GI: Denies abdominal pain nausea, emesis or diarrhea Musculoskeletal: Denies back pain or muscle pain Neuro: Reports altered mental status Skin: Denies rash Except as documented, all other systems reviewed and negative [facility] Past Medical History Medical History Chronic kidney disease DVT (deep venous thrombosis) GERD (gastroesophageal reflux disease) History of cancer of kidney in adulthood Hyperlipidemia Parkinsons disease Surgical History Surgical History History of nephrectomy, left 2016 at [facility] for renal mass History of total right hip replacement History of total right knee replacement Family History Family History Mother Aneurysm Social History Social History Social History: lives in assisted living Years smoked: 0 Smoking status: Never smoker Alcohol intake: current Drinks per week: 2 Substance use: never Gender identity (if verbalized by the patient): Male Spiritual care concerns: No Exam Narrative: APPEARANCE: No acute distress, nontoxic, resting in bed EYES: EOMI HEENT: Normocephalic, atraumatic, OMM RESPIRATORY: No respiratory distress Clear to auscultation bilaterally with no rhonchi wheezing or rales. CARDIOVASCULAR: Regular rate and rhythm with external pacer is present ABDOMINAL: Soft, nontender, nondistended, no rebound or guarding MUSCULOSKELETAl: Moves all extremities. No clubbing, cyanosis or edema. NEURO: Awake and alert x 2. Following commands, speech normal, no focal deficits SKIN:: Warm, dry. No rashes lesions or abrasions PSYCHIATRIC: Normal affect/mood, Course Course Emergency Course: Upon initial presentation discussed with Dr. Duff who was in the emergency department and came to see the patient will take the patient for temporary pacemaker at this time Patient is feeling much better since being temporarily paced son is present agrees with current treatment plan Called and discussed with Dr. Tinsley agrees with consult and admission to the ICU Discussed with ANEL Kohli for Dr Manning agrees with admission Patient remained placed in ED and remained awake and alert prior to transfer to [facility] Discussed with
[2021-12-21 17:51] LABS: Glucose Point of Care 112 mg/dl (65-105)
--- NOTE | 2021-12-21 17:54 | PC.NURSE ---
Addendum entered by Santa Pedroza RN 12/21/21 18:10: ANDREAS varela, temo RN, and accounts supervisor [employer] in to see pt upon arrival. pt is comfortable with being paced and agrees to a temporary pacemaker. Original Note: Pt arrives to er being paced by EMS. pt reportedly had an episode of unresponsiveness.
[2021-12-21 18:00] LABS: Basophils Percent Auto 0.7 % (0.2-1.2); Eosinophils Absolute Auto 0.2 K/mm3 (0-0.3); Eosinophils Percent Auto 5.8 % (0-4.4); Hematocrit 40.4 % (42.0-52.0); Hemoglobin 12.5 g/dL (14.0-18.0); Immature Granulocyte Absolute 0.01 K/mm3 (0.00-0.031); Immature Granulocyte Percent A 0.2 % (0-0.5); Mean Corpuscular HGB Conc 30.9 g/dl (32-36); Mean Corpuscular Hemoglobin 29.1 pg (26-34); Mean Platelet Volume 9.5 fl (7.4-10.4); Monocytes Absolute Auto 0.5 K/mm3 (0.1-0.6); Monocytes Percent Auto 12.9 % (2.6-8.5); Neutrophils Absolute Auto 2.4 K/mm3 (1.3-6.7); Neutrophils Percent Auto 56.4 % (45.5-73.1); Platelet Count Result 253 k/mm3 (150-375); Red Cell Distribution Width 13.5 % (11.5-14.5); White Blood Count 4.2 K/mm3 (4.5-10.0)
[2021-12-21 18:07] LABS: Magnesium 2.9 mg/dL (1.6-2.3)
[2021-12-21 18:09] LABS: INR 1.4; Prothrombin Time 16.6 Seconds (11.1-14.7)
[2021-12-21 18:10] LABS: Partial Thromboplastin Time 32.6 SECONDS (22.3-36.8)
--- NOTE | 2021-12-21 18:10 | PC.NURSE ---
This RN accompanied pt to ct with pacer attached
[2021-12-21 18:16] LABS: Albumin Level 3.7 g/dL (3.5-5.1); Alkaline Phosphatase 79 U/L (38-126); Anion Gap 6 mmol/L (8-16); Aspartate Amino Transferase 25 U/L (17-59); Bilirubin,Total 0.7 mg/dL (0.2-1.3); Blood Urea Nitrogen 25 mg/dL (9-20); Calcium 9.1 mg/dL (8.4-10.2); Carbon Dioxide 27 mmol/L (22-30); Chloride 102 mmol/L (98-107); Estimated CRCL calculation 38 ml/min; Estimated Glomerular Filt Rate 49; Glucose 118 mg/dL (65-110); Lipase 267 U/L (23-300); Sodium 135 mmol/L (137-145)
--- NOTE | 2021-12-21 18:19 | PC.NURSE ---
Pt reportedly had a CVA in late october of this year. Pt was seen here and transferred to [facility].
--- NOTE | 2021-12-21 18:32 | PM.IMHP ---
H&P: HPI History of Present Illness Date/Time: 12/21/21 18:32 Chief Complaint: Syncope and bradycardia Narrative: John Mitchell is a 76-year-old male who lives in assisted living whom I was asked to see at the request of the ER physician Dr. Marrufo of syncope bradycardia, in consultation. He has a history of stroke on Eliquis and Parkinson's disease. The patient apparently passed out at his assisted living today and when EMS arrived he was very bradycardic. He appears to have a high-degree AV block /Complete heart block with heart rate in the 30s and was initially unresponsive. he has been Externally paced and now is more responsive. He denies any chest pain or shortness of breath. 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 He is not able to drive much history. This patient's son says he has no heart trouble and no ep tech, no history of any heart attacks or heart failure. Review of Systems Constitutional: Constitutional: Reports weakness Eyes: Eyes: Reports no additional eye complaints ENT: Denies epistaxis Cardiovascular: Cardiovascular: Denies chest pain and Reports lightheadedness Respiratory: Respiratory: Denies dyspnea Gastrointestinal: Gastrointestinal: Denies abdominal pain Genitourinary: Genitourinary: Denies dysuria Musculoskeletal: Musculoskeletal: Reports no additional musculoskeletal complaints Integumentary/Breasts: Skin/Breast: Reports system reviewed and no additional complaints, except as docu Neurologic: Reports system reviewed and no additional complaints, except as documented Psychiatric: Psychiatric: Reports confusion PMFSH Past Medical History Medical History (Updated 12/21/21 @ 18:37 by Coretta Duff MD) Chronic kidney disease Complete heart block DVT (deep venous thrombosis) GERD (gastroesophageal reflux disease) History of cancer of kidney in adulthood History of stroke Hyperlipidemia Parkinsons disease Syncope Surgical History Surgical History History of nephrectomy, left 2016 at [facility] for renal mass History of total right hip replacement History of total right knee replacement Family History Family History Mother Aneurysm Social History Social History (Updated 12/21/21 @ 18:35 by Coretta Duff MD) Social History: lives in assisted living Years smoked: 0 Smoking status: Never smoker Alcohol intake: current Drinks per week: 2 Substance use: never Gender identity (if verbalized by the patient): Male Spiritual care concerns: No Meds Home Medications and Allergies Home Medications Medication Instructions Recorded Confirmed Type carbidopa-levodopa 2 tablet PO QID 10/06/20 10/06/20 History diclofenac sodium 75 mg PO BID 10/06/20 10/06/20 History gemfibrozil 600 mg PO BID 10/06/20 10/06/20 History ferrous sulfate [FeroSul] 325 mg PO BID 11/03/21 History pantoprazole 40 mg PO DAILY 11/03/21 History rasagiline 1 mg PO DAILY 11/03/21 History Allergies Allergy/AdvReac Type Severity Reaction Status Date / Time No Known Allergies Allergy Verified 11/03/21 09:50 Vital Signs Vital Signs - 24 hr 12/21/21 17:34 12/21/21 17:40 12/21/21 17:51 Pulse Rate 33 L 33 L 65 Respiratory Rate 16 16 12 Blood Pressure 136/58 L 100/88 Pulse Oximetry 98 100 12/21/21 18:08 12/21/21 18:11 12/21/21 18:12 Pulse Rate 71 69 Respiratory Rate 0 L 35 H 16 Blood Pressure 100/78 Pulse Oximetry 99 100 100 12/21/21 18:18 12/21/21 18:27 Pulse Rate 72 78 Respiratory Rate 26 H 18 Blood Pressure 184/104 H 114/72 Pulse Oximetry 98 96 Exam Narrative: elderly gentleman wearing depends, difficult to understand, crying and upset, in the emergency room. Const: General: in distress and uncomfortable HENMT: General nose exam: no epistaxis Eyes: EOM: EOMs intact bilaterally
[2021-12-21 18:35] LABS: Troponin I 0.065 ng/mL (0.000-0.034)
--- NOTE | 2021-12-21 18:37 | WPDMODSED ---
Moderate Sedation Note-Pt Data Patient Data Diagnosis: syncope, complete heart block, bradycardia Present Complaint: syncope Procedure to be performed/Plan: conscious sedation Temporary transvenous pacemaker Allergies Allergy/AdvReac Type Severity Reaction Status Date / Time No Known Allergies Allergy Verified 11/03/21 09:50 Home Medications Medication Instructions Recorded Confirmed Type carbidopa-levodopa 2 tablet PO QID 10/06/20 10/06/20 History diclofenac sodium 75 mg PO BID 10/06/20 10/06/20 History gemfibrozil 600 mg PO BID 10/06/20 10/06/20 History ferrous sulfate [FeroSul] 325 mg PO BID 11/03/21 History pantoprazole 40 mg PO DAILY 11/03/21 History rasagiline 1 mg PO DAILY 11/03/21 History Sedation/Anesthesia: No previous sedation/anesthesia problems (including family history). [facility] Past Medical History Medical History (Updated 12/21/21 @ 18:37 by Coretta Duff MD) Chronic kidney disease Complete heart block DVT (deep venous thrombosis) GERD (gastroesophageal reflux disease) History of cancer of kidney in adulthood History of stroke Hyperlipidemia Parkinsons disease Syncope Surgical History Surgical History History of nephrectomy, left 2016 at [facility] for renal mass History of total right hip replacement History of total right knee replacement Family History Family History Mother Aneurysm Social History Social History (Updated 12/21/21 @ 18:35 by Coretta Duff MD) Social History: lives in assisted living Years smoked: 0 Smoking status: Never smoker Alcohol intake: current Drinks per week: 2 Substance use: never Gender identity (if verbalized by the patient): Male Spiritual care concerns: No Mod Sed Physical Exam Physical Exam Pre Procedural Exam: Normal: Appearance ( elderly frail male), Eyes, Ears, Nose, Neck, Throat, Airway, Lungs, Heart Size, Heart Rhythm, Abdomen, Extremities and Skin and Variation: Heart Rate ( bradycardia) and Neuro Exam ( poor historian) Hours since solid foods: 1 Hours since liquid intake: 1 Mallampati Classification: class III Internal Medicine - PN: Obj Da Vital Signs Vital Signs: Vital Signs - 24 hr 12/21/21 17:34 12/21/21 17:40 12/21/21 17:51 Pulse Rate 33 L 33 L 65 Respiratory Rate 16 16 12 Blood Pressure 136/58 L 100/88 Pulse Oximetry 98 100 12/21/21 18:08 12/21/21 18:11 12/21/21 18:12 Pulse Rate 71 69 Respiratory Rate 0 L 35 H 16 Blood Pressure 100/78 Pulse Oximetry 99 100 100 12/21/21 18:18 12/21/21 18:27 Pulse Rate 72 78 Respiratory Rate 26 H 18 Blood Pressure 184/104 H 114/72 Pulse Oximetry 98 96 Meds/Results Radiology Results: ITS Impressions Chest X-Ray 12/21/21 18:02 IMPRESSION: No acute cardiopulmonary process. Head CT 12/21/21 18:18 IMPRESSION: No acute intracranial process. Labs CBC & Chem 7: 12/21/21 17:47 12/21/21 17:46 Labs: Laboratory Results - last 24 hr 12/21/21 12/21/21 12/21/21 17:39 17:46 17:46 WBC RBC Hgb Hct MCV MCH MCHC RDW Plt Count MPV Immature Gran % (Auto) Neut % (Auto) Lymph % (Auto) [place] % (Auto) Eos % (Auto) Baso % (Auto) Lymph # (Auto) [place] # (Auto) Eos # (Auto) Baso # (Auto) Abs Immat Gran (auto) Absolute Neuts (auto) Absolute Nucleated RBC Nucleated RBC % PT 16.6 H INR 1.4 APTT 32.6 Sodium 135 L Potassium 4.0 Chloride 102 Carbon Dioxide 27 Anion Gap 6 L BUN 25 H Creatinine 1.40 H Estim Creat Clear Calc 38 Estimated GFR 49 L Glucose 118 H POC Capillary Glucose 112 H Calcium 9.1 Magnesium Total Bilirubin 0.7 AST 25 Alkaline Phosphatase 79 Troponin I 0.065 H* Total Protein 7.0 Albumin 3.7 Lipase 267
[2021-12-21 18:40] LABS: Thyroid Stimulating Hormone 0.476 uIU/mL (0.465-4.680)
[2021-12-21 18:44] LABS: Thyroid Stimulating Hormone 0.447 uIU/mL (0.465-4.680)
--- NOTE | 2021-12-21 18:44 | PC.NURSE ---
Called report to ICU, margo prieto, all questions addressed. Pt son was walked to ICU waiting room and has pt valuables.
--- NOTE | 2021-12-21 18:52 | PC.NURSE ---
report called to Ana VELÁSQUEZ at [facility]. States pt was somewhat responsive with a hr of 50 when she evaluated. All questions addressed and made aware of need for procedure and need to admit.
[2021-12-21 19:00] LABS: NT Pro B Type Natriuretic Pept 867 pg/mL (5-100)
[2021-12-21 19:01] LABS: Alanine Aminotransferase < 6 U/L (6-50)
--- NOTE | 2021-12-21 19:08 | PM.OP ---
Procedure Note - Brief Procedure Note - Brief Date of procedure: 12/21/21 Pre-op diagnosis: Heart Block Post-op diagnosis: Same Description of procedure: uneventful placement of a temporary transvenous pacemaker Anesthesia: local ( with conscious sedation) Surgeon: Coretta Duff MD Complications: No immediate complications Disposition: ICU
--- NOTE | 2021-12-21 19:09 | P.OP_ITS ---
Procedure Note - Detailed Date of Procedure 12/21/21 Pre-op Diagnosis Heart Block Post-op Diagnosis Same Procedure Performed conscious sedation Temporary transvenous pacemaker Surgeon Coretta Duff MD Anesthesia Local ( with conscious sedation) Indications 68-year-old male with a syncopal event today, found to be bradycardic with complete heart block. Externally pacing but here for a emergent temporary transvenous pacemaker. Description of Procedure Conscious sedation: Assessment: The patient has no history of anesthesia problems. The patient's oropharynx is clear. The patient was deemed to be a good candidate for conscious sedation. The patient had continuous hemodynamic monitoring during the procedure. Start time: 1846 Completion time: 1906 Total conscious sedation time: 20 minutes Medications: fentanyl 25 mcg IV push Trained observer: Jannette Alford Outcome: The patient tolerated the procedure well with no complications. Procedure: After informed consent patient was brought to the construction craft laborer. The right femoral area is prepped and draped in usual fashion. He was given conscious sedation as above. The area was anesthetized with 1% lidocaine in the right femoral vein was cannulated with a 7 [place] venous sheath. A temporary transvenous pacemaker was advanced into right heart out into the apex. Had to be repositioned because of some ectopy. The threshold was less than 1 mV. External pacing was discontinued and transvenous pacemaker was set for rate of 60, mA of 5. Plan: Patient likely will need a permanent pacemaker in the near future. His Eliquis will be held. Estimated Blood Loss 2 Complications No immediate complications Condition Stable Disposition ICU
--- NOTE | 2021-12-21 19:25 | PC.NURSE ---
This patient, John Mitchell, was admitted to Intensive Care Unit-6. Patient/family oriented to hospital policies and general routines including ID bracelet, bed and alarms, visiting hours, pain management, procedures, bathroom and other care routines, personal items, smoking policy, room service/diet, and visiting hours. Information on how to activate the Rapid Response Team has been discussed. Patient/Family are encouraged to report perceived risks to care and to ask questions if they do not understand what they are told or what they should do.
--- NOTE | 2021-12-21 19:54 | PM.IMHP ---
H&P: HPI History of Present Illness Date/Time: 12/21/21 19:54 Chief Complaint: Unresponsive Narrative: 76-year-old male with past medical history of Parkinson's, hyperlipidemia and prior DVTs who presented to the ER from longterm facility due to having an unresponsive episode. When longterm staff found the patient he was lying in bed and was unresponsive. And a heart rate in the 30s. When EMS arrived to the facility the patient was given 2 mg of Versed and placed on external pacer. After the pacemaker was placed the patient was more alert and appropriate. Reportedly the patient had called out is why the nursing staff at found the patient. The patient does not remember calling out and does not remember events that brought him to the ER. He does remember waking up in the ambulance. EKG demonstrated patient had third-degree heart block. Patient was evaluated by Cardiology in the ER was taken to the collaborative teacher temporary pacemaker. The patient denies having any chest pain or shortness of breath. He reports that he had been feeling constipated and had some bowel regimen at the longterm but his constipation resolved yesterday after having multiple large bowel movements. Patient does have some slightly slurred speech on exam. He reports he has had slurred speech with worsening of his Parkinson's. He also recently had a CVA in October with residual right-sided weakness. He reports since his CVA he occasionally does have some difficulty swallowing his meds. He denies any cough, congestion, fevers or chills. He denies any history of BPH her difficulty with urinating. He has not had any hematuria, hematochezia or melena. He has a external arm monitor on that I suspect is from when he had his CVA for continuous monitoring. Patient does not know the name of the cushion filler. Review of Systems Review of Systems: 12 systems were reviewed with pertinent positives and negatives per HPI. Except as documented in the HPI, all other systems were reviewed and are negative. [facility] Past Medical History Medical History (Updated 12/21/21 @ 20:11 by Griselda Gonsalez DO) Chronic anemia Chronic kidney disease Complete heart block CVA (cerebral vascular accident) (11/02/21) Presented with right-sided weakness and was transferred to [facility] DVT (deep venous thrombosis) GERD (gastroesophageal reflux disease) History of cancer of kidney in adulthood Hyperlipidemia Parkinsons disease Small bowel obstruction (~10/2020) Syncope Surgical History Surgical History (Updated 12/22/21 @ 02:44 by Griselda Gonsalez DO) History of nephrectomy, left 2016 at [facility] renal carcinoma History of total right hip replacement History of total right knee replacement Family History Family History Mother Aneurysm Social History Social History (Updated 12/22/21 @ 02:50 by Grsielda Gonsalez DO) Social History: The patient is since approximately 2014. He has 3 children. He lived in his home home until October 2021 when he had his CVA. Since that time the patient has transition to assisted living. He ambulates with a walker. Code status: Full code (He would not want a trach or PEG. He does not want to continue living if he cannot communicate his desires and wishes.) Healthcare power of criminal defense attorney: Gavino (youngest son) Smoking status: Never smoker Alcohol use details: He rarely drinks alcohol and only in moderation. Substance use: never Occupation/Education: retired Additional occupation/education comments: He worked as a printer. Gender identity (if verbalized by the patient): Male Spiritual care concerns: No Meds Home Medications and Allergies Home Medications Medication Instructions Recorded Confirmed Type carbidopa-levodopa 2 tablet PO QID 10/06/20 12/21/21 History pantoprazole 40 mg PO DAILY 11/03/21 12/21/21 History rasagiline 1 mg PO DAILY
[2021-12-21 20:59] LABS: SARS-CoV-2 RNA PCR Negative
[2021-12-22] VITALS (28 sets, daily range): BP systolic 91–188; BP diastolic 49–91; PULSE 60–74; RESP 8–20; TEMP 36.8–37.7; O2SAT 84–100
[2021-12-22 01:04] LABS: Troponin I 0.095 ng/mL (0.000-0.034)
[2021-12-22 04:47] LABS: Hematocrit 41.6 % (42.0-52.0); Hemoglobin 13.2 g/dL (14.0-18.0); Mean Corpuscular HGB Conc 31.7 g/dl (32-36); Mean Corpuscular Hemoglobin 29.1 pg (26-34); Mean Corpuscular Volume 91.6 fl (80-100); Mean Platelet Volume 9.8 fl (7.4-10.4); Platelet Count Result 284 k/mm3 (150-375); Red Blood Count 4.54 M/mm3 (4.6-6.20); Red Cell Distribution Width 13.3 % (11.5-14.5); White Blood Count 4.8 K/mm3 (4.5-10.0)
[2021-12-22 05:04] LABS: Anion Gap 7 mmol/L (8-16); Blood Urea Nitrogen 20 mg/dL (9-20); Calcium 9.2 mg/dL (8.4-10.2); Carbon Dioxide 30 mmol/L (22-30); Chloride 102 mmol/L (98-107); Estimated CRCL calculation 45 ml/min; Estimated Glomerular Filt Rate 49; Glucose 108 mg/dL (65-110); Magnesium 2.6 mg/dL (1.6-2.3); Phosphorus 4.1 mg/dL (2.5-4.5); Potassium 4.1 mmol/L (3.4-5.0); Sodium 139 mmol/L (137-145)
[2021-12-22 05:06] LABS: INR 1.2; Prothrombin Time 14.6 Seconds (11.1-14.7)
[2021-12-22 05:07] LABS: Partial Thromboplastin Time 38.9 SECONDS (22.3-36.8)
[2021-12-22 05:18] LABS: Troponin I 0.105 ng/mL (0.000-0.034)
--- NOTE | 2021-12-22 08:00 | ECHO_ITS ---
Patient Info Name: John Mitchell Age: 76 years : 1945 Gender: Male Ht: 74 in Wt: 181 lbs BSA: 2.07 m2 HR: 60 bpm BP: 133 / 67 mmHg Exam Date: 12/22/2021 8:26 AM Exam Location: [facility] Pulmonary Patient Status: Inpatient Admit Date: 12/21/2021 Staff Ordering Physician: Coretta Duff MD Sql Data Architect: Karthik Molina, JOHNY, RT Attending Provider: Griselda Gonsalez DO Referring Physician: Sherin VEGA; Exam Type: CA echo doppler color flow Study Info Indications I48.0 - Paroxysmal atrial fibrillation Complete two-dimensional, color flow and Doppler transthoracic echocardiogram is performed with contrast to opacify the left ventricle and to improve the deliniation of the left ventricle endocardial borders. Summary 1. Left ventricular systolic function is normal, estimated at 55-60%. 2. There is mildly increased left ventricular wall thickness. 3. The left ventricular diastolic function is abnormal. 4. There is mild aortic valve stenosis. 5. There is mild tricuspid valve regurgitation. 6. Mild pulmonary hypertension, estimated pulmonary arterial systolic pressure is 43 mmHg. 7. Technically difficult study. Left Ventricle Left ventricular chamber dimension is normal. Left ventricular systolic function is normal, estimated at 55-60%. There is mildly increased left ventricular wall thickness. Left ventricular septal wall motion is normal. The left ventricular diastolic function is abnormal. Right Ventricle Right ventricular chamber dimension is normal. Right ventricular systolic function is normal. Left Atria Left atrial chamber dimension is not well visualized. Right Atria Right atrial chamber dimension is not well visualized. Aortic Valve The aortic valve is not well visualized. There is mild aortic valve stenosis. There is no aortic valve regurgitation. Pulmonic Valve The pulmonic valve is normal. There is no pulmonic valve stenosis. There is no pulmonic regurgitation. Mitral Valve The mitral valve has not well visualized. There is no mitral valve stenosis. There is no mitral valve regurgitation. Tricuspid Valve The tricuspid valve leaflets are normal. There is no significant tricuspid valve stenosis. There is mild tricuspid valve regurgitation. Mild pulmonary hypertension, estimated pulmonary arterial systolic pressure is 43 mmHg. Pericardium/Pleural The pericardium appears normal. There is no pericardial effusion. Inferior Vena Cava Dilated inferior vena cava with <50% collapse upon inspiration consistent with elevated right atrial pressure, 15 mmHg. Aorta The aortic root size at the sinus of Valsalva is not well visualized. The prox ascending aorta size is not well visualized. Left Ventricular Outflow Tract Name Value Normal LVOT Doppler LVOT Peak Gradient 3 mmHg LVOT Mean Gradient 1 mmHg LVOT VTI 15 cm LVOT VTI/AV VTI Ratio 0.3 Mitral Valve Name Value Normal MV Do
[2021-12-22] MEDS: polyethylene glycoL 3350 17 GM POWD.PACK PO (08:44)
[2021-12-22] MEDS: CARBIDOPA/LEVODOPA 25/100 MG TABLET 2 TABLET PO ×4 (08:47→20:18)
[2021-12-22] MEDS: ASPIRIN 81 MG ENTERIC TABLET PO (08:50)
[2021-12-22] MEDS: PANTOPRAZOLE 40 MG TABLET PO (08:51)
[2021-12-22] MEDS: PERFLUTREN LIPID MICROSPHERES 1.5 ML VIAL DILUTED TO 10 ML TOTAL VOLUME IV PUSH (09:01)
--- NOTE | 2021-12-22 11:02 | PHAR ---
The patient's home med of Rasagiline 1 mg tablet has been verified.
--- NOTE | 2021-12-22 11:16 | WPDCNINT ---
Assessment and Plan Assessment and plan (1) Complete heart block: Code(s): I44.2 - Atrioventricular block, complete Status: Acute Assessment and Plan: Patient presented with symptomatic bradycardia with syncope. Was found to be in high-degree AV/third-degree block -for status post temporary transvenous pacemaker -cardiology following the patient -patient has been on Eliquis which is currently on hold, possible permanent pacemaker on 12/23 (2) Syncope: Code(s): R55 - Syncope and collapse Status: Acute Assessment and Plan: Patient had a syncopal episode likely related to high degree AV block -once he was transcutaneously paced he was more awake and -now status post temporary transvenous pacemaker, no more episodes of syncope or altered mental status (3) Parkinsons disease: Code(s): G20 - Parkinson's disease Status: Chronic Assessment and Plan: Continue Sinemet (4) Chronic kidney disease: Qualifiers: Chronic kidney disease stage: stage 3 (moderate) Chronic kidney disease stage 3 subtype: stage 3b (GFR 30-44) Qualified Code(s): N18.32 - Chronic kidney disease, stage 3b Code(s): N18.9 - Chronic kidney disease, unspecified Status: Chronic Assessment and Plan: Chronic kidney disease with baseline creatinine 1.40 -continue oral diet -will continue to monitor renal function, electrolytes and urine output Additional Plan Discussed with patient and his brother and updated them with patient's condition and plan of care. They are aware that the patient will require a permanent pacemaker Code status: Full code Critical care time spent: 42 minutes This dictation may have been done utilizing a voice recognition system. Attempts have been made to correct errors. However, there may be uncorrected grammatical, spelling, and recognition errors present. Due to a high probability of clinically significant, life threatening deterioration, the patient required my highest level of preparedness to intervene emergently and I personally spent this critical care time directly and personally managing the patient. This critical care time included obtaining a history; examining the patient; pulse oximetry; ordering and review of studies; arranging urgent treatment with development of a management plan; evaluation of patient's response to treatment; frequent reassessment; and discussions with other providers. It was exclusive of separately billable procedures and treating other patients and teaching time. Please see Assessment and Plan section and the rest of the note for further information on patient assessment and treatment Director Of Retail Consult Note Consult date: 12/22/21 Time Seen: 07:06 Reason for consult: Syncope, bradycardia status post temporary transvenous pacemaker placement HPI: John Mitchell is a 76 year old male with significant past medical history of chronic kidney disease, DVT, GERD, history of cancer of kidney in adulthood, history of stroke, hyperlipidemia, Parkinson's disease presented to the ED on 12/21/2021 with complains of syncope, unresponsive. According the EMS patient was found unresponsive in his bed, EKG at that time showed a 3rd degree AV block. EMS placed temporary pacer pads and BUN to pace him, patient did wake up at that time it was awake when he came to the ER. He denies any chest pain, shortness on breath and really did not know why he came to the ER. Patient was taken to the cardiac manager labor relations for temporary transvenous pacemaker was inserted. Pacemaker rate was set at 60, mA of 5. CBC was unremarkable, sodium was 135, potassium 4.0, BUN 25 and creatinine of 1.4 which seems to be his baseline. Troponins were 0.065, 0.070 and 0.095. ProBNP was 867. Patient has been on Eliquis for DVT and stroke. Eliquis was held. Patient was transferred to the ICU for further management. Patient seen and examined the ICU this morning, is awake, alert, oriented, abl
--- NOTE | 2021-12-22 11:41 | PM.IMPN ---
Progress Note: A&P Assessment and Plan (1) Third degree heart block: Code(s): I44.2 - Atrioventricular block, complete Status: Acute Assessment and Plan: pacemaker place per cardiology (2) Leukopenia: Code(s): D72.819 - Decreased white blood cell count, unspecified Status: Acute Assessment and Plan: The patient does have chronic anemia. consider outpatient fu (3) Syncope: Code(s): R55 - Syncope and collapse Status: Acute Assessment and Plan: Syncope due to third-degree heart block. PPM placed (4) Parkinsons disease: Code(s): G20 - Parkinson's disease Status: Chronic Assessment and Plan: The patient has history of Parkinson's disease and CVA with difficulties with mild dysphagia. Patient is not a good candidate for oral intake while lying flat due to trans venous pacemaker. The patient's home Eliquis, atorvastatin, and Sinemet are on hold. Subjective Date/time seen: 12/22/21 11:41 no new issues overnight Exam Narrative: General: Pleasant gentleman lying comfortably in bed, with no acute distress HEENT: Pupils equal reactive, sclera is clear Neck: Supple, no lymphadenopathy Respiratory: Clear to auscultation bilaterally, decreased at bases Cardiac: Regular rate rhythm, paced, patient does have a 2/6 systolic murmur Abdomen: Soft, nontender, nondistended, normoactive bowel sounds Extremities: No edema, warm, palpable pedal pulses Neuro: Patient is awake, alert, oriented, nonfocal Skin: Dry and intact Psych: Normal mentation and affect Objective Data Vital Signs Vital Signs: Vital Signs - 24 hr 12/21/21 17:34 12/21/21 17:40 12/21/21 17:51 Temperature Pulse Rate 33 L 33 L 65 Respiratory Rate 16 16 12 Blood Pressure 136/58 L 100/88 Pulse Oximetry 98 100 12/21/21 18:08 12/21/21 18:11 12/21/21 18:12 Temperature Pulse Rate 71 69 Respiratory Rate 0 L 35 H 16 Blood Pressure 100/78 Pulse Oximetry 99 100 100 12/21/21 18:18 12/21/21 18:27 12/21/21 19:40 Temperature 97.8 F Pulse Rate 72 78 60 Respiratory Rate 26 H 18 22 H Blood Pressure 184/104 H 114/72 128/57 L Pulse Oximetry 98 96 92 12/21/21 20:00 12/21/21 20:01 12/21/21 22:00 Temperature Pulse Rate 60 60 60 Respiratory Rate 22 H Blood Pressure 117/58 L Pulse Oximetry 99 95 12/21/21 22:01 12/22/21 00:00 12/22/21 00:15 Temperature 99.2 F Pulse Rate 60 60 Respiratory Rate 16 13 Blood Pressure 146/64 H 169/65 H 142/64 H Pulse Oximetry 99 100 12/22/21 01:46 12/22/21 02:00 12/22/21 02:01 Temperature 99.6 F Pulse Rate 60 60 Respiratory Rate Blood Pressure 188/67 H Pulse Oximetry 97 91 12/22/21 02:06 12/22/21 02:30 12/22/21 02:42 Temperature 99.7 F H 99.8 F H Pulse Rate 61 60 74 Respiratory Rate 18 13 Blood Pressure 165/91 H Pulse Oximetry 84 L 91 96 12/22/21 03:01 12/22/21 04:00 12/22/21 04:01 Temperature 99.8 F H 99.4 F Pulse Rate 60 61 60 Respiratory Rate 8 L 19 Blood Pressure 132/66 152/73 H Pulse Oximetry 96 100 96 12/22/21 05:50 12/22/21 06:00 12/22/21 06:01 Temperature 99.1 F Pulse Rate 60 60 60 Respiratory Rate 14 19 Blood Pressure 159/82 H Pulse Oximetry 100 100 12/22/21 08:00 12/22/21 09:00 12/22/21 10:00 Temperature 99.2 F Pulse Rate 60 60 Respiratory Rate 12 12 Blood Pressure 141/64 H 121/69 Pulse Oximetry 99 97 98 Intake/Output Intake/Output: Intake & Output 12/19/21 12/20/21 12/21/21 12/22/21 23:59 23:59 23:59 23:59 Output Total 525 Balance -525 Meds/Results Medications: Active Medications Generic Name Dose Route Start Last Admin Trade Name Freq PRN Reason Stop Dose Admin Acetaminophen 500 mg 12/21/21 20:07 Acetaminophen 500 Mg Tablet PO Q4H PRN Mild Pain (1-3) or Fever Aspirin 81 mg 12/22/21 09:00 12/22/21 08:50 Aspirin 81 Mg Enteric Tablet PO 81 mg DAILY CHRISTEN Administration Atorva
--- NOTE | 2021-12-22 15:07 | PM.PNCARD ---
Progress Note: A&P Assessment and Plan (1) Complete heart block: Code(s): I44.2 - Atrioventricular block, complete Status: Acute Assessment and Plan: Status post insertion of transvenous temporary pacemaker on 12/21. Plan for permanent pacemaker implantation either tomorrow or Sunday once he has been off his Eliquis for an appropriate period of time. (2) Syncope: Code(s): R55 - Syncope and collapse Status: Acute Assessment and Plan: Secondary to bradycardia and heart block (3) History of stroke: Code(s): Z86.73 - Personal history of transient ischemic attack (TIA), and cerebral infarction without residual deficits Status: Acute Assessment and Plan: takes Eliquis (4) Parkinsons disease: Code(s): G20 - Parkinson's disease Status: Chronic Subjective Date/time seen: 12/22/21 15:07 cardiology follow-up for complete heart block Status post transvenous pacemaker placement yesterday evening. Patient is feeling well and does not have any complaints this afternoon. Denies any chest pain, palpitations, shortness of breath. His son is at the bedside. Discussed plan for plan permanent pacemaker implantation when deemed safe (patient's last dose of Eliquis yesterday morning). Review of Systems Constitutional: Constitutional: Reports weakness Eyes: Eyes: Reports no additional eye complaints ENT: Denies epistaxis Cardiovascular: Cardiovascular: Denies chest pain, Reports lightheadedness and Denies dyspnea Respiratory: Respiratory: Denies dyspnea Gastrointestinal: Gastrointestinal: Denies abdominal pain Genitourinary: Genitourinary: Denies dysuria Musculoskeletal: Musculoskeletal: Reports no additional musculoskeletal complaints Integumentary/Breasts: Skin/Breast: Reports system reviewed and no additional complaints, except as docu Neurologic: Reports system reviewed and no additional complaints, except as documented, Reports confusion and Reports weakness Psychiatric: Psychiatric: Reports confusion Exam Narrative: elderly gentleman lying comfortably in bed in the ICU. His son is at the bedside. Const: General: comfortable, no acute distress, alert and awake HENMT: General nose exam: no epistaxis Eyes: EOM: EOMs intact bilaterally Neck: Neck: supple Thyroid: thyroid normal Resp: Effort & Inspection: normal respiratory effort Auscultation: clear to auscultation bilaterally Cardio: Rate: regular rate Rhythm: regular rhythm Heart sounds: no murmurs GI: Inspection: non-distended Skin: General skin exam: normal color and no rashes or lesions noted Neuro: General: confusion Cognition (Neuro): abnormal cognition Extrem: General: no edema and no pedal edema Objective Data Vital Signs Vital Signs: Vital Signs - 24 hr 12/21/21 17:34 12/21/21 17:40 12/21/21 17:51 Temperature Pulse Rate 33 L 33 L 65 Respiratory Rate 16 16 12 Blood Pressure 136/58 L 100/88 Pulse Oximetry 98 100 12/21/21 18:08 12/21/21 18:11 12/21/21 18:12 Temperature Pulse Rate 71 69 Respiratory Rate 0 L 35 H 16 Blood Pressure 100/78 Pulse Oximetry 99 100 100 12/21/21 18:18 12/21/21 18:27 12/21/21 19:40 Temperature 36.6 C Pulse Rate 72 78 60 Respiratory Rate 26 H 18 22 H Blood Pressure 184/104 H 114/72 128/57 L Pulse Oximetry 98 96 92 12/21/21 20:00 12/21/21 20:01 12/21/21 22:00 Temperature Pulse Rate 60 60 60 Respiratory Rate 22 H Blood Pressure 117/58 L Pulse Oximetry 99 95 12/21/21 22:01 12/22/21 00:00 12/22/21 00:15 Temperature 37.3 C Pulse Rate 60 60 Respiratory Rate 16 13 Blood Pressure 146/64 H 169/65 H 142/64 H Pulse Oximetry 99 100 12/22/21 01:46 12/22/21 02:00 12/22/21 02:01 Temperature 37.6 C Pulse Rate 60 60 Respiratory Rate Blood Pressure 188/67 H Pulse Oximetry 97 91 12/22/21 02:06 12/22/21 02:30 12/22/21 02:42 Temperature 37.6 C H 37.7 C H Pulse Rate 61 60 74 R
[2021-12-22] MEDS: FAMOTIDINE 20 MG TABLET PO (20:18)
[2021-12-22] MEDS: ATORVASTATIN 40 MG TABLET PO (20:19)
[2021-12-23] VITALS (19 sets, daily range): BP systolic 91–151; BP diastolic 53–92; PULSE 60–103; RESP 12–23; TEMP 36.4–37.4; O2SAT 94–100
[2021-12-23 05:14] LABS: Basophils Percent Auto 0.6 % (0.2-1.2); Eosinophils Absolute Auto 0.3 K/mm3 (0-0.3); Hematocrit 42.8 % (42.0-52.0); Immature Granulocyte Absolute 0.01 K/mm3 (0.00-0.031); Immature Granulocyte Percent A 0.2 % (0-0.5); Lymphocytes Absolute Auto 0.76 K/mm3 (0.9-3.2); Lymphocytes Percent Auto 15.1 % (18.3-44.2); Mean Corpuscular HGB Conc 32.7 g/dl (32-36); Mean Corpuscular Hemoglobin 29.9 pg (26-34); Mean Corpuscular Volume 91.3 fl (80-100); Mean Platelet Volume 9.6 fl (7.4-10.4); Monocytes Absolute Auto 0.5 K/mm3 (0.1-0.6); Monocytes Percent Auto 9.5 % (2.6-8.5); Neutrophils Absolute Auto 3.5 K/mm3 (1.3-6.7); Neutrophils Percent Auto 68.6 % (45.5-73.1); Platelet Count Result 254 k/mm3 (150-375); Red Blood Count 4.69 M/mm3 (4.6-6.20); Red Cell Distribution Width 13.3 % (11.5-14.5)
[2021-12-23 05:25] LABS: Albumin Level 3.8 g/dL (3.5-5.1); Alkaline Phosphatase 85 U/L (38-126); Anion Gap 8 mmol/L (8-16); Aspartate Amino Transferase 18 U/L (17-59); Blood Urea Nitrogen 19 mg/dL (9-20); Calcium 9.1 mg/dL (8.4-10.2); Carbon Dioxide 28 mmol/L (22-30); Chloride 101 mmol/L (98-107); Estimated CRCL calculation 49 ml/min; Estimated Glomerular Filt Rate 53; Glucose 100 mg/dL (65-110); Magnesium 2.6 mg/dL (1.6-2.3); Phosphorus 4.3 mg/dL (2.5-4.5); Potassium 4.1 mmol/L (3.4-5.0); Sodium 137 mmol/L (137-145)
[2021-12-23 05:29] LABS: INR 1.2; Prothrombin Time 14.4 Seconds (11.1-14.7)
[2021-12-23 05:30] LABS: Partial Thromboplastin Time 36.1 SECONDS (22.3-36.8)
[2021-12-23 05:52] LABS: Alanine Aminotransferase < 6 U/L (6-50)
--- NOTE | 2021-12-23 07:29 | PM.PNCARD ---
Progress Note: A&P Additional Plan 76-year-old man with acquired complete heart block he will be taken to the label remover this afternoon for implantation of permanent dual-chamber pacemaker device. Koby Youngblood MD [facility] Subjective Date/time seen: Date of service: 12/23/21 07:29 Interval history: Follow-up visit in this 76-year-old man with: Symptomatic bradycardia with acquired complete heart block. Patient was brought to the label remover admission for a temporary transvenous pacemaker via the right femoral vein. He has been in ICU room 6. Hemodynamically stable since then. Permanent device implantation has been delayed because of systemic anticoagulation with apixaban. Feels well this morning sleeping comfortably when I entered the room offers no complaints following being awakened. Discussed plans for permanent device implantation this afternoon which he understands well and agrees to proceed Exam Narrative: elderly gentleman lying comfortably in bed in the ICU. His son is at the bedside. Const: General: comfortable, no acute distress, alert and awake HENMT: General nose exam: no epistaxis Eyes: EOM: EOMs intact bilaterally Neck: Neck: supple Thyroid: thyroid normal Resp: Effort & Inspection: normal respiratory effort Auscultation: clear to auscultation bilaterally Cardio: Rate: regular rate Rhythm: regular rhythm Heart sounds: no murmurs GI: Inspection: non-distended Skin: General skin exam: normal color and no rashes or lesions noted Neuro: Cognition (Neuro): abnormal cognition Extrem: General: no edema and no pedal edema Psych: Affect: Sad affect present and Anxious affect present Objective Data Vital Signs Vital Signs: Vital Signs - 24 hr 12/22/21 08:00 12/22/21 09:00 12/22/21 10:00 Temperature 37.3 C Pulse Rate 60 60 Respiratory Rate 12 12 Blood Pressure 141/64 H 121/69 Pulse Oximetry 99 97 98 12/22/21 12:00 12/22/21 14:00 12/22/21 16:00 Temperature 37.3 C 37.3 C 37.3 C Pulse Rate 60 60 70 Respiratory Rate 12 20 14 Blood Pressure 117/64 104/56 L 91/49 L Pulse Oximetry 99 96 99 12/22/21 18:00 12/22/21 18:01 12/22/21 20:00 Temperature 36.8 C Pulse Rate 60 60 60 Respiratory Rate 16 Blood Pressure 107/55 L Pulse Oximetry 98 12/22/21 20:01 12/22/21 20:40 12/22/21 22:00 Temperature 36.8 C Pulse Rate 60 60 Respiratory Rate 16 Blood Pressure 112/60 Pulse Oximetry 99 98 12/22/21 22:01 12/22/21 22:51 12/23/21 00:00 Temperature 36.9 C Pulse Rate 60 60 60 Respiratory Rate 13 17 Blood Pressure 92/57 L Pulse Oximetry 94 98 12/23/21 00:01 12/23/21 02:00 12/23/21 02:01 Temperature 36.7 C 36.9 C Pulse Rate 60 61 61 Respiratory Rate 14 23 H Blood Pressure 107/61 136/72 Pulse Oximetry 99 99 12/23/21 03:17 12/23/21 03:57 12/23/21 04:00 Temperature Pulse Rate 61 60 Respiratory Rate 16 Blood Pressure Pulse Oximetry 98 100 12/23/21 04:01 12/23/21 06:00 Temperature 37.1 C 37.3 C Pulse Rate 60 64 Respiratory Rate 16 13 Blood Pressure 139/75 138/71 Pulse Oximetry 100 99 Intake/Output Intake/Output: Intake & Output 12/20/21 12/21/21 12/22/21 12/23/21 23:59 23:59 23:59 23:59 Output Total 800 150 Balance -800 -150 Meds/Results Medications: Active Medications Generic Name Dose Route Start Last Admin Trade Name Julianne PRN Reason Stop Dose Admin Acetaminophen 500 mg 12/21/21 20:07 Acetaminophen 500 Mg Tablet PO Q4H PRN Mild Pain (1-3) or Fever Aspirin 81 mg 12/22/21 09:00 12/22/21 08:50 Aspirin 81 Mg Enteric Tablet PO 81 mg DAILY CHRISTEN Administration Atorvastatin Calcium 40 mg 12/21/21 21:00 12/22/21 20:19 Atorvastatin 40 Mg Tablet PO 40 mg HS CHRISTEN Administration Carbidopa/Levodopa 2 tablet 12/21/21 21:00 12/22/21 20:18 Carbidopa/Levodopa 25/100 Mg Tablet PO 2 tablet [facility] CHRISTEN Administration Famotidine 20 mg 12/21/21 21:00 12/22/21 20:18 Famot
--- NOTE | 2021-12-23 07:46 | PC.NURSE ---
Updated sonGavino, on plan for pacemaker placement.
--- NOTE | 2021-12-23 08:00 | ECG_ITS ---
Measurements Intervals [place] Rate: 66 P: [place]: 0 QRS: 64 QRSD: 114 T: -22 QT: 431 QTc: 455 Interpretive Statements SINUS RHTYHM WITH FIRST DEGREE AV BLOCK ELECTRONIC VENTRICULAR PACEMAKER COMPLEXES INTRAVENTRICULAR CONDUCTION DELAY ST-T WAVE ABNORMALITY IN ANT/INF LEADS- CONSIDER ISCHEMIA ABNORMAL ECG Electronically Signed On 12-23-2021 10:00:19 CDT by Eloy Dobbs D.O.
[2021-12-23] MEDS: CARBIDOPA/LEVODOPA 25/100 MG TABLET 2 TABLET PO ×4 (08:27→21:40)
[2021-12-23] MEDS: polyethylene glycoL 3350 17 GM POWD.PACK PO (08:28)
[2021-12-23] MEDS: PANTOPRAZOLE 40 MG TABLET PO (08:28)
[2021-12-23] MEDS: ASPIRIN 81 MG ENTERIC TABLET PO (08:28)
--- NOTE | 2021-12-23 08:46 | WPDINTPN ---
Progress Note: A&P Assessment and Plan (1) Complete heart block: Code(s): I44.2 - Atrioventricular block, complete Status: Acute Assessment and Plan: Patient presented with symptomatic bradycardia with syncope. Was found to be in high-degree AV/third-degree block -for status post temporary transvenous pacemaker -discuss with cardiology, patient will get an implantation of permanent dual-chamber pacemaker device this afternoon (12/23) -patient has been on Eliquis which is on hold since admission (2) Syncope: Code(s): R55 - Syncope and collapse Status: Acute Assessment and Plan: Patient had a syncopal episode likely related to high degree AV block -once he was transcutaneously paced he was more awake and -now status post temporary transvenous pacemaker, no more episodes of syncope or altered mental status (3) Parkinsons disease: Code(s): G20 - Parkinson's disease Status: Chronic Assessment and Plan: Continue Sinemet (4) Chronic kidney disease: Qualifiers: Chronic kidney disease stage: stage 3 (moderate) Chronic kidney disease stage 3 subtype: stage 3b (GFR 30-44) Qualified Code(s): N18.32 - Chronic kidney disease, stage 3b Code(s): N18.9 - Chronic kidney disease, unspecified Status: Chronic Assessment and Plan: Chronic kidney disease with baseline creatinine -NPO for the procedure -permanent pacemaker -will continue to monitor renal function, electrolytes and urine output Additional Plan Discussed with patient and his son and updated them with patient's condition and plan of care. I answered all questions. They are aware that the patient is going to get a permanent pacemaker implantation device today Code status: Full code Critical care time spent: 32 minutes Discussed with cardiology This dictation may have been done utilizing a voice recognition system. Attempts have been made to correct errors. However, there may be uncorrected grammatical, spelling, and recognition errors present. Due to a high probability of clinically significant, life threatening deterioration, the patient required my highest level of preparedness to intervene emergently and I personally spent this critical care time directly and personally managing the patient. This critical care time included obtaining a history; examining the patient; pulse oximetry; ordering and review of studies; arranging urgent treatment with development of a management plan; evaluation of patient's response to treatment; frequent reassessment; and discussions with other providers. It was exclusive of separately billable procedures and treating other patients and teaching time. Please see Assessment and Plan section and the rest of the note for further information on patient assessment and treatment Subjective Date/time seen: 12/23/21 08:46 Interval history: Reason for consult: Syncope, symptomatic bradycardia status post temporary transvenous pacemaker placement. 12/23/2021: Patient seen and examined this morning the ICU, lying flat in bed with temperature transvenous pacemaker in the right femoral vein. Patient is hemodynamically stable, on 2 L nasal cannula with good O2 sats, almost patient dependent with very few intrinsic beats. Patient denies any shortness of breath, chest pain, abdominal pain, nausea, vomiting. Urine output has been added, patient is afebrile. No issues overnight Review of Systems Review of Systems: All systems reviewed & are unremarkable except as noted in HPI and below Exam Narrative: General: Pleasant gentleman lying comfortably in bed, with no acute distress HEENT: Pupils equal reactive, sclera is clear Neck: Supple, no lymphadenopathy Respiratory: Clear to auscultation bilaterally, decreased at bases Cardiac: Regular rate rhythm, paced, patient does have a 2/6 systolic murmur Abdomen: Soft, nontender, nondistended, normoactive bowel sounds Extremities:
--- NOTE | 2021-12-23 13:43 | PC.NURSE ---
Patient off floor to bolt labeler. Gavino Diaz notified.
--- NOTE | 2021-12-23 14:03 | WPDMODSED ---
Moderate Sedation Note-Pt Data Patient Data Diagnosis: Complete heart block Present Complaint: weakness fatigue Procedure to be performed/Plan: permanent pacemaker implantation Allergies Allergy/AdvReac Type Severity Reaction Status Date / Time No Known Allergies Allergy Verified 11/03/21 09:50 Home Medications Medication Instructions Recorded Confirmed Type carbidopa-levodopa 2 tablet PO QID 10/06/20 12/21/21 History pantoprazole 40 mg PO DAILY 11/03/21 12/21/21 History rasagiline 1 mg PO DAILY 11/03/21 12/21/21 History apixaban [Eliquis] 5 mg PO BID 12/21/21 12/21/21 History aspirin [Aspir-81] 81 mg PO DAILY 12/21/21 12/21/21 History atorvastatin 40 mg PO HS 12/21/21 12/21/21 History famotidine 20 mg PO BID 12/21/21 12/21/21 History polyethylene glycol 3350 [Miralax] 17 g PO DAILY 12/21/21 12/21/21 History Current Medications: Active Medications Acetaminophen (Acetaminophen 500 Mg Tablet) 500 mg PO Q4H PRN PRN Reason: Mild Pain (1-3) or Fever Aspirin (Aspirin 81 Mg Enteric Tablet) 81 mg PO DAILY [facility] Last Admin: 12/23/21 08:28 Dose: 81 mg Documented by: Atorvastatin Calcium (Atorvastatin 40 Mg Tablet) 40 mg PO [facility] Last Admin: 12/22/21 20:19 Dose: 40 mg Documented by: Carbidopa/Levodopa (Carbidopa/Levodopa 25/100 Mg Tablet) 2 tablet PO [facility] Last Admin: 12/23/21 12:22 Dose: 2 tablet Documented by: Famotidine (Famotidine 20 Mg Tablet) 20 mg PO [facility] Last Admin: 12/22/21 20:18 Dose: 20 mg Documented by: Home Med (Home Med Rasagiline 1 Mg Tablet) 1 each PO DAILY [facility] Stop: 01/21/22 08:59 Last Admin: 12/23/21 08:28 Dose: 1 each Documented by: Pantoprazole Sodium (Pantoprazole 40 Mg Tablet) 40 mg PO DAILY [facility] Last Admin: 12/23/21 08:28 Dose: 40 mg Documented by: Polyethylene Glycol (Polyethylene Glycol 3350 17 Gm Powd.Pack) 17 gm PO DAILY [facility] Last Admin: 12/23/21 08:28 Dose: 17 gm Documented by: Sedation/Anesthesia: No previous sedation/anesthesia problems (including family history). [facility] Past Medical History Medical History (Updated 12/21/21 @ 20:11 by Griselda Gonsalez DO) Chronic anemia Chronic kidney disease Complete heart block CVA (cerebral vascular accident) (11/02/21) Presented with right-sided weakness and was transferred to [facility] DVT (deep venous thrombosis) GERD (gastroesophageal reflux disease) History of cancer of kidney in adulthood Hyperlipidemia Parkinsons disease Small bowel obstruction (~10/2020) Syncope Surgical History Surgical History (Updated 12/22/21 @ 02:44 by Griselda Gonsalez DO) History of nephrectomy, left 2015 at [facility] renal carcinoma History of total right hip replacement History of total right knee replacement Family History Family History Mother Aneurysm Social History Social History (Updated 12/22/21 @ 02:50 by Griselda Gonsalez DO) Social History: The patient is since approximately 2014. He has 3 children. He lived in his home home until October 2021 when he had his CVA. Since that time the patient has transition to assisted living. He ambulates with a walker. Code status: Full code (He would not want a trach or PEG. He does not want to continue living if he cannot communicate his desires and wishes.) Healthcare power of workers compensation defense attorney: Gavino (youngest son) Smoking status: Never smoker Alcohol use details: He rarely drinks alcohol and only in moderation. Substance use: never Occupation/Education: retired Additional occupation/education comments: He worked as a printer. Gender identity (if verbalized by the patient): Male Spiritual care concerns: No Mod Sed Physical Exam Physical Exam Pre Procedural Exam: Normal: Appearance, Neck, Throat, Airway, Lungs, Heart Size, Heart Rate, Heart Rhythm, Neuro Exam and Extremities Hours since solid foods: 12 Hours since liquid intake: 12 Mallampati Classification: class II
--- NOTE | 2021-12-23 15:33 | ECG_ITS ---
Measurements Intervals [place] Rate: 67 P: 39 [place]: 149 QRS: -63 QRSD: 214 T: 102 QT: 531 QTc: 563 Interpretive Statements ATRIAL SENSE- ELECTRONIC VENTRICULAR PACEMAKER BASELINE ARTIFACT- I, III, AVR, AVL, V1 NO FURTHER INTERPRETATION IS POSSIBLE ATYPICAL ECG Electronically Signed On 12-25-2021 7:47:13 CDT by Eloy Dobbs D.O.
--- NOTE | 2021-12-23 15:35 | WPDCARDPROC ---
Cardiac Cath Procedure Note Date of procedure:: 12/23/21 Performing physician:: Koby Youngblood MD Indication:: acquired complete heart block Brief clinical history:: this is a 76-year-old man who was admitted to the hospital couple of days ago with symptomatic bradycardia and acquired complete heart block. He received a temporary transvenous pacemaker and then was maintained in the ICU for 48 hours until he is no longer anticoagulated. Patient had been taking apixaban for history of DVT. He is now being brought to the center medical and lab director for permanent pacemaker implantation Procedure Procedure performed:: permanent dual-chamber pacemaker implant Sedation/Medication given:: fentanyl 75 mg Versed 3 mg case start time 2:32 p.m. case end time 3:28 p.m. Access site:: left subclavian vein Estimated blood loss:: 25 cc Procedure note:: patient was brought to the cardiac catheterization lab in the postabsorptive state with the temporary transvenous pacemaker in place from the right femoral vein. The left anterior chest wall was prepped and draped in the usual fashion and a pacemaker draping was placed. The patient then received 1% lidocaine infiltrated locally at the site of the pocket to be created. Incision was then made from the mid to thick aligned to the doubt deltopectoral groove inferior to the clavicle and using sharp and blunt dissection the subcutaneous tissue was to the level of the prepectoral fascia. The electrocautery was used to provide cutaneous hemostasis. Following this blunt dissection was used to create a pacemaker pocket inferior to the incision along the fascial plane. A pocket was then packed with an antibiotic-soaked 4 x 4. Following this attention was turned to venous access. Several attempts to puncture the subclavian vein were not successful. I then elevated the feet under a wedge pillow and the subclavian vein was then punctured and 2 separate guidewires were placed from 2 separate punctures into the venous circulation to the level of the right atrium. Using the pacemaker peel-away safe sheaths the leads mentioned below ir placed into the venous circulation to the level of the right atrium. Following this attention was turned to positioning the ventricular lead. The stylet was removed from the lead and had J-tip was formed using a 3 cc syringe and placed back into the lead this was used to steer the lead through the right ventricle out to the pulmonary artery position. This was then exchanged for a straight stylet and the lead was withdrawn and placed into the right ventricular apical position. The lead tip was adjacent to the temporary pacemaker lead. The fixation screw was deployed. The lead was tested using the analyzer with appropriate pacing and sensing performance being documented and good current of injury. Following this the attention was turned to positioning the atrial lead. The straight stylet was removed and a preformed atrial J was placed this was used to place the lead tip in the right atrial appendage. The fixation screw was deployed and upon withdrawal of the stylet the lead tip was fixed into position. The analyzer was used to test the lead again probed appropriate pacing and sensing performance was demonstrated and using a 10 volt stimulus in both leads there was no evidence of extracardiac stimulation. Following this the leads were secured to the base of the pocket using the suture sleeves and 2-0 silk ties. The retained sponge was removed the pocket and it was sick I irrigated with antibiotic infused saline. Following this the pacemaker generator detailed below was connected to the leads using the torque wrench and the entire assembly was placed into the newly created pocket. The pocket was then closed in layers using 3-0 Vicryl in interrupted fashion for the subcutaneous tissue and 4-0 Vicryl in a running subcuticular fashion for the skin. The wound was dressed with an Aquacel dressing the elysia
--- NOTE | 2021-12-23 16:08 | PC.NURSE ---
Patient returned to room without issue. Report received from DIDIER Bhatia. Updated son, Gavino, on patient condition.
[2021-12-23] MEDS: SODIUM CHLORIDE 0.9% IV 1,000 ML 50 ML IV CONT (16:30)
[2021-12-23] MEDS: ATORVASTATIN 40 MG TABLET PO (21:40)
[2021-12-23] MEDS: FAMOTIDINE 20 MG TABLET PO (21:40)
--- NOTE | 2021-12-23 22:11 | PCRCNOTE ---
Patient refused [place] [facility] [place] Stated, Oh please no. I don't want to wear that thing. I won't be able to sleep with it on . Analytical Manager explained the importance of wearing but patient refused. Spo2 96% on room air. Will continue to monitor.
[2021-12-24] VITALS (10 sets, daily range): BP systolic 108–164; BP diastolic 52–83; PULSE 70–97; RESP 12–23; TEMP 36.4–37.5; O2SAT 95–100
--- NOTE | 2021-12-24 08:54 | PM.PNCARD ---
Progress Note: A&P Additional Plan 76-year-old man with acquired complete heart block doing well following implantation of permanent dual-chamber pacing system yesterday. Temporary transvenous wire was removed in the seed laboratory assistant following device implant. Patient can be moved to the floor today to telemetry and anticipate discharge tomorrow if all is well. He will be at bedrest for the balance of 24 hours following device implant. Koby Youngblood MD [facility] Subjective Date/time seen: date of service:12/24/21 08:54 Interval history: Reason for consult: Syncope, symptomatic bradycardia status post temporary transvenous pacemaker placement. 12/23/2021: Patient seen and examined this morning the ICU, lying flat in bed with temperature transvenous pacemaker in the right femoral vein. Patient is hemodynamically stable, on 2 L nasal cannula with good O2 sats, almost patient dependent with very few intrinsic beats. Patient denies any shortness of breath, chest pain, abdominal pain, nausea, vomiting. Urine output has been added, patient is afebrile. No issues overnight 12/24/2021: Patient is postop day 1. Following implantation of dual-chamber pacing system yesterday. He is doing very well. Pacemaker interrogation this morning demonstrates normal device function. Postop chest x-ray looks favorable. Patient's only complaint this morning is some discomfort at the incisional site. Otherwise no complaints. Exam Narrative: elderly gentleman lying comfortably in bed in the ICU. His son is at the bedside. Const: General: comfortable, no acute distress, alert and awake HENMT: General nose exam: no epistaxis Eyes: EOM: EOMs intact bilaterally Neck: Neck: supple Thyroid: thyroid normal Chest: Other: Pacemaker incision / dressing site clean and dry Resp: Effort & Inspection: normal respiratory effort Auscultation: clear to auscultation bilaterally Cardio: Rate: regular rate Rhythm: regular rhythm Heart sounds: no murmurs GI: Inspection: non-distended Skin: General skin exam: normal color and no rashes or lesions noted Neuro: Cognition (Neuro): abnormal cognition Extrem: General: no edema and no pedal edema Psych: Affect: Sad affect present and Anxious affect present Objective Data Vital Signs Vital Signs: Vital Signs - 24 hr 12/23/21 10:00 12/23/21 12:00 12/23/21 16:00 Temperature 37.4 C 37.0 C 36.4 C L Pulse Rate 96 60 68 Respiratory Rate 15 12 18 Blood Pressure 92/62 L 129/63 140/63 Pulse Oximetry 97 100 97 12/23/21 16:30 12/23/21 17:00 12/23/21 18:00 Temperature 36.7 C 36.6 C 36.9 C Pulse Rate 76 68 82 Respiratory Rate 18 17 20 Blood Pressure 144/74 H 151/74 H 136/79 Pulse Oximetry 99 99 97 12/23/21 20:00 12/23/21 22:00 12/23/21 22:12 Temperature 37.1 C Pulse Rate 72 79 Respiratory Rate 22 H 16 Blood Pressure 91/53 L 140/66 Pulse Oximetry 94 95 96 12/24/21 00:00 12/24/21 02:00 12/24/21 04:00 Temperature 36.8 C 37.2 C Pulse Rate 72 90 84 Respiratory Rate 23 H 20 23 H Blood Pressure 108/83 146/72 H 164/75 H Pulse Oximetry 97 98 98 12/24/21 06:00 Temperature Pulse Rate 88 Respiratory Rate 18 Blood Pressure 139/75 Pulse Oximetry 100 Intake/Output Intake/Output: Intake & Output 12/21/21 12/22/21 12/23/21 12/24/21 23:59 23:59 23:59 23:59 Intake Total 390 50 Output Total 800 450 225 Balance -800 -60 -175 Meds/Results Medications: Active Medications Generic Name Dose Route Start Last Admin Trade Name Eugeneq PRN Reason Stop Dose Admin Acetaminophen 500 mg 12/21/21 20:07 Acetaminophen 500 Mg Tablet PO Q4H PRN Mild Pain (1-3) or Fever Aspirin 81 mg 12/22/21 09:00 12/23/21 08:28 Aspirin 81 Mg Enteric Tablet PO 81 mg DAILY CHRISTEN Administration Atorvastatin Calcium 40 mg 12/21/21 21:00 12/23/21 21:40 Atorvastatin 40 Mg Tablet PO 40 mg HS CHRISTEN Administration Carbidopa/Levodopa 2 tablet 12/21/21 21:00 12/23/21 21:4
[2021-12-24] MEDS: PANTOPRAZOLE 40 MG TABLET PO (09:52)
[2021-12-24] MEDS: CARBIDOPA/LEVODOPA 25/100 MG TABLET 2 TABLET PO ×4 (09:52→21:05)
[2021-12-24] MEDS: ASPIRIN 81 MG ENTERIC TABLET PO (09:53)
[2021-12-24] MEDS: ACETAMINOPHEN 500 MG TABLET PO ×2 (09:56→21:08)
--- NOTE | 2021-12-24 10:10 | PM.IMPN ---
Progress Note: A&P Assessment and Plan (1) Complete heart block: Code(s): I44.2 - Atrioventricular block, complete Status: Acute Assessment and Plan: Patient presented with symptomatic bradycardia with syncope. Was found to be in high-degree AV/third-degree block -f status post pacemaker doing okay at Appreciate Cardiology input (2) Syncope: Code(s): R55 - Syncope and collapse Status: Acute Assessment and Plan: See plan above (3) Parkinsons disease: Code(s): G20 - Parkinson's disease Status: Chronic Assessment and Plan: Continue Sinemet (4) Chronic kidney disease: Qualifiers: Chronic kidney disease stage: stage 3 (moderate) Chronic kidney disease stage 3 subtype: stage 3b (GFR 30-44) Qualified Code(s): N18.32 - Chronic kidney disease, stage 3b Code(s): N18.9 - Chronic kidney disease, unspecified Status: Chronic Assessment and Plan: Monitor kidney function Subjective Date/time seen: 12/24/21 10:10 No new complaints Exam Narrative: General: Pleasant gentleman lying comfortably in bed, with no acute distress HEENT: Pupils equal reactive, sclera is clear Neck: Supple, no lymphadenopathy Respiratory: Clear to auscultation bilaterally, decreased at bases Cardiac: Regular rate rhythm, paced, patient does have a 2/6 systolic murmur Abdomen: Soft, nontender, nondistended, normoactive bowel sounds Extremities: No edema, warm, palpable pedal pulses Neuro: Patient is awake, alert, oriented, nonfocal Skin: Dry and intact Psych: Normal mentation and affect Objective Data Vital Signs Vital Signs: Vital Signs - 24 hr 12/23/21 12:00 12/23/21 16:00 12/23/21 16:30 Temperature 98.6 F 97.5 F L 98.0 F Pulse Rate 60 68 76 Respiratory Rate 12 18 18 Blood Pressure 129/63 140/63 144/74 H Pulse Oximetry 100 97 99 12/23/21 17:00 12/23/21 18:00 12/23/21 20:00 Temperature 97.8 F 98.5 F 98.8 F Pulse Rate 68 82 72 Respiratory Rate 17 20 22 H Blood Pressure 151/74 H 136/79 91/53 L Pulse Oximetry 99 97 94 12/23/21 22:00 12/23/21 22:12 12/24/21 00:00 Temperature 98.2 F Pulse Rate 79 72 Respiratory Rate 16 23 H Blood Pressure 140/66 108/83 Pulse Oximetry 95 96 97 12/24/21 02:00 12/24/21 04:00 12/24/21 06:00 Temperature 98.9 F Pulse Rate 90 84 88 Respiratory Rate 20 23 H 18 Blood Pressure 146/72 H 164/75 H 139/75 Pulse Oximetry 98 98 100 Intake/Output Intake/Output: Intake & Output 12/21/21 12/22/21 12/23/21 12/24/21 23:59 23:59 23:59 23:59 Intake Total 390 50 Output Total 800 450 225 Balance -800 -60 -175 Meds/Results Medications: Active Medications Generic Name Dose Route Start Last Admin Trade Name Freq PRN Reason Stop Dose Admin Acetaminophen 500 mg 12/21/21 20:07 12/24/21 09:56 Acetaminophen 500 Mg Tablet PO 500 mg Q4H PRN Administration Mild Pain (1-3) or Fever Hydrocodone Bitart/Acetaminophen 1 tab 12/24/21 10:06 Hydrocodone/Acetaminophen (*Crx) 5-325 Mg Tablet PO Q8H PRN Pain Rated 4-6 Aspirin 81 mg 12/22/21 09:00 12/24/21 09:53 Aspirin 81 Mg Enteric Tablet PO 81 mg DAILY CHRISTEN Administration Atorvastatin Calcium 40 mg 12/21/21 21:00 12/23/21 21:40 Atorvastatin 40 Mg Tablet PO 40 mg HS CHRISTEN Administration Carbidopa/Levodopa 2 tablet 12/21/21 21:00 12/24/21 09:52 Carbidopa/Levodopa 25/100 Mg Tablet PO 2 tablet [facility]HS CHRISTEN Administration Famotidine 20 mg 12/21/21 21:00 12/23/21 21:40 Famotidine 20 Mg Tablet PO 20 mg HS CHRISTEN Administration Home Med 1 each 12/22/21 09:00 12/24/21 09:51 Home Med Rasagiline 1 Mg Tablet PO 01/21/22 08:59 1 each DAILY CHRISTEN Administration Pantoprazole Sodium 40 mg 12/22/21 09:00 12/24/21 09:52 Pantoprazole 40 Mg Tablet PO 40 mg DAILY CHRISTEN Administration Polyethylene Glycol 17 gm 12/22/21 09:00 12/24/21 09:52 Polyethylene Glycol 3350 17 Gm Powd.Pack PO No
[2021-12-24] MEDS: HYDROcodone/acetaminophen (*CRX) 5-325 MG TABLET 1 TAB PO (10:42)
--- NOTE | 2021-12-24 11:00 | WPDINTPN ---
Progress Note: A&P Assessment and Plan (1) Complete heart block: Code(s): I44.2 - Atrioventricular block, complete Status: Acute Assessment and Plan: Patient presented with symptomatic bradycardia with syncope. Was found to be in high-degree AV/third-degree block -12/23/21: Status post dual chamber pacemaker -device was interrogated this morning and functions normally (2) Syncope: Code(s): R55 - Syncope and collapse Status: Acute Assessment and Plan: Patient had a syncopal episode likely related to high degree AV block -once he was transcutaneously paced he was more awake and -now status post temporary transvenous pacemaker, no more episodes of syncope or altered mental status -no more episodes (3) Parkinsons disease: Code(s): G20 - Parkinson's disease Status: Chronic Assessment and Plan: Continue Sinemet (4) Chronic kidney disease: Qualifiers: Chronic kidney disease stage: stage 3 (moderate) Chronic kidney disease stage 3 subtype: stage 3b (GFR 30-44) Qualified Code(s): N18.32 - Chronic kidney disease, stage 3b Code(s): N18.9 - Chronic kidney disease, unspecified Status: Chronic Assessment and Plan: Chronic kidney disease with baseline creatinine -will continue to monitor renal function, electrolytes and urine output Additional Plan Nutrition: Patient on heart healthy diet Code status: Full code Critical care time spent: 32 minutes Discussed with cardiology, okay to transfer to medical floor with telemetry This dictation may have been done utilizing a voice recognition system. Attempts have been made to correct errors. However, there may be uncorrected grammatical, spelling, and recognition errors present. Due to a high probability of clinically significant, life threatening deterioration, the patient required my highest level of preparedness to intervene emergently and I personally spent this critical care time directly and personally managing the patient. This critical care time included obtaining a history; examining the patient; pulse oximetry; ordering and review of studies; arranging urgent treatment with development of a management plan; evaluation of patient's response to treatment; frequent reassessment; and discussions with other providers. It was exclusive of separately billable procedures and treating other patients and teaching time. Please see Assessment and Plan section and the rest of the note for further information on patient assessment and treatment Subjective Date/time seen: 12/24/21 11:00 Interval history: Reason for consult: Syncope, symptomatic bradycardia status post temporary transvenous pacemaker placement. 12/23/2021 status post dual-chamber permanent pacemaker placement 12/24/2021: Patient seen and examined this morning the ICU, no issues overnight, pacemaker interrogation this morning demonstrates normal device function. Patient is hemodynamically stable, adequate urine output, afebrile. Denies any chest pain, shortness a breath, abdominal pain, nausea vomiting at this time. Tinsley complains of some discomfort at the incisional site. Review of Systems Review of Systems: All systems reviewed & are unremarkable except as noted in HPI and below Exam Narrative: General: Pleasant gentleman lying comfortably in bed, with no acute distress HEENT: Pupils equal reactive, sclera is clear Neck: Supple, no lymphadenopathy Respiratory: Clear to auscultation bilaterally, decreased at bases Cardiac: Regular rate rhythm, paced, patient does have a 2/6 systolic murmur, pacemaker site looks clean dry and intact Abdomen: Soft, nontender, nondistended, normoactive bowel sounds Extremities: No edema, warm, palpable pedal pulses Neuro: Patient is awake, alert, oriented, nonfocal Skin: Dry and intact Psych: Normal mentation and affect Objective Data Vital Signs Vital Signs: Vital Signs - 24 hr 12/23/21
--- NOTE | 2021-12-24 11:31 | PC.NURSE ---
3RD MED/SURG NOTIFIED OF PATIENT'S SBAR BEING FAXED AND TUBED AT 1122.
--- NOTE | 2021-12-24 11:54 | PC.NURSE ---
This patient, John Mitchell, was transferred to [facility] on 12/24/21 at 1202. Personal belongings sent with patient. Report given to Ragini VELÁSQUEZ. Appropriate documentation sent with patient.
[2021-12-24] MEDS: ATORVASTATIN 40 MG TABLET PO (21:05)
[2021-12-24] MEDS: FAMOTIDINE 20 MG TABLET PO (21:05)
[2021-12-25] VITALS: PULSE 84
[2021-12-25 00:05] VITALS: BP 121/60; PULSE 78; RESP 18; TEMP 36.8; O2SAT 95
[2021-12-25 04:00] VITALS: PULSE 78
[2021-12-25 06:00] VITALS: BP 129/68; PULSE 79; RESP 16; TEMP 37.2; O2SAT 97
[2021-12-25 08:00] VITALS: PULSE 84
[2021-12-25] MEDS: ACETAMINOPHEN 500 MG TABLET PO (09:00)
[2021-12-25] MEDS: CARBIDOPA/LEVODOPA 25/100 MG TABLET 2 TABLET PO ×2 (09:00→13:27)
[2021-12-25] MEDS: ASPIRIN 81 MG ENTERIC TABLET PO (09:00)
[2021-12-25] MEDS: polyethylene glycoL 3350 17 GM POWD.PACK PO (09:00)
[2021-12-25] MEDS: PANTOPRAZOLE 40 MG TABLET PO (09:00)
--- NOTE | 2021-12-25 10:38 | PM.PNCARD ---
Progress Note: A&P Additional Plan Patient is doing well with respect to his complete heart block/pacemaker implantation. From that respect he can be discharged from the hospital. I am not sure why he is still apparently had bed rest and still has a urinary catheter in place. Will direct the staff to remove the left arm immobilizer. Will arrange for outpatient follow-up/pacemaker dressing removal on Sunday of this coming week. Dressing is to be kept clean and dry and undisturbed until then. Koby Youngblood MD [facility] Subjective Date/time seen: Date of service: 12/25/21 10:38 Interval history: Reason for consult: Syncope, symptomatic bradycardia status post temporary transvenous pacemaker placement. 12/23/2021: Patient seen and examined this morning the ICU, lying flat in bed with temperature transvenous pacemaker in the right femoral vein. Patient is hemodynamically stable, on 2 L nasal cannula with good O2 sats, almost patient dependent with very few intrinsic beats. Patient denies any shortness of breath, chest pain, abdominal pain, nausea, vomiting. Urine output has been added, patient is afebrile. No issues overnight 12/24/2021: Patient is postop day 1. Following implantation of dual-chamber pacing system yesterday. He is doing very well. Pacemaker interrogation this morning demonstrates normal device function. Postop chest x-ray looks favorable. Patient's only complaint this morning is some discomfort at the incisional site. Otherwise no complaints. Date of service 12/25/2021: Patient is stable out on telemetry has no cardiovascular complaints. Left arm is still in an immobilizer he still has a urinary catheter and states that he has not been allowed to get out of bed. Exam Narrative: elderly gentleman lying comfortably in bed in the ICU. His son is at the bedside. Const: General: comfortable, no acute distress, alert and awake HENMT: General nose exam: no epistaxis Eyes: EOM: EOMs intact bilaterally Neck: Neck: supple Thyroid: thyroid normal Chest: Other: Pacemaker incision / dressing site clean and dry Resp: Effort & Inspection: normal respiratory effort Auscultation: clear to auscultation bilaterally Cardio: Rate: regular rate Rhythm: regular rhythm Heart sounds: no murmurs GI: Inspection: non-distended Skin: General skin exam: normal color and no rashes or lesions noted Neuro: Cognition (Neuro): abnormal cognition Extrem: General: no edema and no pedal edema Psych: Affect: Sad affect present and Anxious affect present Objective Data Vital Signs Vital Signs: Vital Signs - 24 hr 12/24/21 12:00 12/24/21 14:12 12/24/21 16:00 Temperature 36.4 C L Pulse Rate 83 79 79 Respiratory Rate 20 Blood Pressure 116/52 L Pulse Oximetry 95 12/24/21 20:00 12/24/21 21:44 12/25/21 00:00 Temperature 37.2 C Pulse Rate 86 85 84 Respiratory Rate 18 Blood Pressure 146/68 H Pulse Oximetry 96 12/25/21 00:05 12/25/21 04:00 12/25/21 06:00 Temperature 36.8 C 37.2 C Pulse Rate 78 78 79 Respiratory Rate 18 16 Blood Pressure 121/60 129/68 Pulse Oximetry 95 97 Intake/Output Intake/Output: Intake & Output 12/22/21 12/23/21 12/24/21 12/25/21 23:59 23:59 23:59 23:59 Intake Total 390 1340 50 Output Total 800 450 475 350 Balance -800 -60 865 -300 Meds/Results Medications: Active Medications Generic Name Dose Route Start Last Admin Trade Name Freq PRN Reason Stop Dose Admin Acetaminophen 500 mg 12/21/21 20:07 12/25/21 09:00 Acetaminophen 500 Mg Tablet PO 500 mg Q4H PRN Administration Mild Pain (1-3) or Fever Hydrocodone Bitart/Acetaminophen 1 tab 12/24/21 10:06 12/24/21 10:42 Hydrocodone/Acetaminophen (*Crx) 5-325 Mg Tablet PO 1 tab Q8H PRN Administration Pain Rated 4-6 Aspirin 81 mg 12/22/21 09:00 12/25/21 09:00 Aspirin 81 Mg Enteric Tablet PO 81 mg DAILY CHRISTEN Administration Atorvastatin Calcium 40 mg 12/21
--- NOTE | 2021-12-25 11:07 | PM.DS ---
DS: Admitting Diagnosis Discharge Date December 25, 2021 Admitting Diagnosis Heart block DS: Discharge Diagnosis Discharge Diagnosis (1) Complete heart block: Code(s): I44.2 - Atrioventricular block, complete Status: Acute Assessment and Plan: Patient presented with symptomatic bradycardia with syncope. Was found to be in high-degree AV/third-degree block -device was interrogated this morning and functions normally (2) Syncope: Code(s): R55 - Syncope and collapse Status: Acute Assessment and Plan: Pacemaker has been interrogated and is functioning properly. Follow with Cardiology. (3) Parkinsons disease: Code(s): G20 - Parkinson's disease Status: Chronic Assessment and Plan: Continue Sinemet (4) Chronic kidney disease: Qualifiers: Chronic kidney disease stage: stage 3 (moderate) Chronic kidney disease stage 3 subtype: stage 3b (GFR 30-44) Qualified Code(s): N18.32 - Chronic kidney disease, stage 3b Code(s): N18.9 - Chronic kidney disease, unspecified Status: Chronic Assessment and Plan: Follow up with primary as an outpatient. DS: Summary Hospital Course Hospital Course: Pages is a 74-year-old male with multiple medical problems came in with syncope and was found to be in heart block. Pacemaker was placed and he did well. No more issues and pacemaker has been interrogated and is functioning properly. He will need a follow-up with Cardiology as an outpatient. Time Spent with Patient Time attestation: Total time spent providing and/or coordinating discharge services: Exam Narrative: General: Pleasant gentleman lying comfortably in bed, with no acute distress HEENT: Pupils equal reactive, sclera is clear Neck: Supple, no lymphadenopathy Respiratory: Clear to auscultation bilaterally, decreased at bases Cardiac: Regular rate rhythm, paced, patient does have a 2/6 systolic murmur, pacemaker site looks clean dry and intact Abdomen: Soft, nontender, nondistended, normoactive bowel sounds Extremities: No edema, warm, palpable pedal pulses Neuro: Patient is awake, alert, oriented, nonfocal Skin: Dry and intact Psych: Normal mentation and affect Discharge Plan Discharge Attending physician on discharge: Koby Kunz Consulting providers: Coretta Duff ; Diane Tinsley Discharging Clinician: Koby Kunz Patient Disposition: Home, Self-Care Activity: no preference Diet: as tolerated Discharge Instructions: [facility] [address] [place] [address] DISCHARGE INSTRUCTIONS - POST PACEMAKER Activity 1. No driving until you are seen in the office for your incision check. 2. No lifting, pushing or pulling more than 5 pounds with affected arm for 1 MONTH 3. No lifting affected arm above shoulder height for 1 MONTH 4. Wear immobilizer/sling only if you are unable to remember the above activity restrictions. Recommend that it be worn at night. 5. You may shower AFTER you are seen for incision check on 12/30/2021 but no tub baths, swimming pool or hot tub for 1MONTH Wound Care 1. Do not attempt to remove the Aquacel dressing. Leave dressing undisturbed until incision check at the office visit. Keep dressing dry. 2. When you are able to shower AFTER you are seen for your incision check in the office do not rub or scrub the incision. Pat dry after shower. NO lotions, powders, creams or ointments ar
[2021-12-25 11:55] LABS: EDCOVIDSCREEN Negative (Negative)
== END 2021-12-25 14:24 | DRG 244 ==
LOC: ANHED 18:10 → ANHICU 18:53 → ANH3MEDSUR 12-25 11:06 → ANHICU 12-28 15:05
PROVIDERS: Internal Medicine; Internal Medicine Cardiovascular Disease; Specialist; Admitting Provider Chiropractor; Emergency Provider Emergency Medicine; PCP Family Medicine; Visit Provider Chiropractor
PROC: 5A1223Z Performance of Cardiac Pacing, Continuous (ICD-10-PCS; CPT 33210; principal; 2021-12-21 18:10)
PROC: 0JH606Z Insertion of Pacemaker, Dual Chamber into Chest Subcutaneous Tissue and Fascia, Open Approach (ICD-10-PCS; CPT 33208; principal; 2021-12-23 10:30)
DX: I44.2 Atrioventricular block, complete (principal); R55 Syncope and collapse; Z86.73 Personal history of transient ischemic attack (TIA), and cerebral infarction without residual deficits; G20 Parkinson's disease; E78.5 Hyperlipidemia, unspecified; D72.819 Decreased white blood cell count, unspecified; N18.32 Chronic kidney disease, stage 3b; R00.1 Bradycardia, unspecified; Z79.899 Other long term (current) drug therapy; Z86.718 Personal history of other venous thrombosis and embolism; Z90.5 Acquired absence of kidney
CPT/HCPCS: 33208; 33210; 36415; 70450; 71045; 71046; 74176; 80048; 80053; 82948; 83690; 83735; 83880; 84100; 84443; 84484; 85025; 85027; 85610; 85730; 86850; 86900; 86901; 87086; 87426; 93005; 93306; 94660; 99285; A9270; C1779; C1785; C1894; C9803; J0690; J1644; J2250; J3010; J7030; J7040; Q9957; U0003; U0005

== ENCOUNTER 2022-04-24 15:03 | Inpatient (IN) | payer MEDICARE, OTHER, SELFPAY ==
[2022-04-24] VITALS (27 sets, daily range): BP systolic 134–183; BP diastolic 52–165; PULSE 67–88; RESP 11–24; TEMP 37.1; O2SAT 77–100
--- NOTE | ~2022-04-24 | NM_ITS ---
EXAMINATION: NM GI bleeding DATE: 04/26/2022 14:51 INDICATION: Hematochezia. TECHNIQUE: 24.8 mCi Tc 99m in vitro labeled red cells was administered intravenously. Scintigraphic images of the abdomen were obtained for one hour. COMPARISON: CT abdomen and pelvis 04/24/2022 FINDINGS: There is mobile increased activity in the right abdomen in bowel that progresses to the lef t abdomen, consistent with active hemorrhage. IMPRESSION: 1. Active hemorrhage in right abdomen. The shape of the involved bowel suggests the origin may be in proximal duodenum, but this is not definitive. Alternatively, the bleeding source could be in transv erse colon or other small bowel. I discussed this finding with Dr. Rangel. Reviewed, dictated and finalized at location A. IMPRESSION: 1. Active hemorrhage in right abdomen. The shape of the involved bowel suggest s the origin may be in proximal duodenum, but this is not definitive. Alternati vely, the bleeding source could be in transverse colon or other small bowel. I discussed this finding with Dr. Rangel.
--- NOTE | ~2022-04-24 | CT_ITS ---
EXAMINATION: CT abdomen pelvis w con DATE: 04/24/2022 20:58 INDICATION: rectal bleeding TECHNIQUE: Computed tomography (CT) of the abdomen and pelvis was performed with 100 mL Omnipaque-350 intravenous contrast. Automated exposure control and iterative reconstruction technique were employe d. The dose-length product was 534.42 mGy-cm. COMPARISON: 12/21/2021. FINDINGS: Lower thorax: Calcified granulomas. Bilateral dependent atelectasis incompletely visualized pacer todd ds. Mitral annulus calcification. Mild cardiomegaly. Liver: Normal. Biliary/Gallbladder: Gallbladder is normal. No bile duct dilation. Pancreas: No mass or duct dilation. Spleen: Granulomatous calcification Adrenals:No mass. Kidneys: Left nephrectomy. Right renal cysts. Right midpole exophytic lesion too small to characteriz e but most likely represents a cyst. Punctate nonobstructive right midpole calculus. GI tract: No small or large bowel dilation. Normal appendix. Extensive diverticulosis, without focal inflammatory change to suggest diverticulitis. Short segment distal rectal wall edema. Mesentery/Peritoneum: No ascites, mass, or free air. Retroperitoneum: No mass. Atherosclerotic abdominal aortic and/or arterial calcifications. Pelvis: Bladder wall thickening likely due to outlet compromise from prostatomegaly. Prosthetic calci fications.. Soft Tissues: Soft tissues and body wall unremarkable. Bones: No acute osseous finding. Incompletely visualized right hip arthroplasty without evident comp lication. IMPRESSION: Short segment distal rectal wall edema, may reflect proctitis. Chronic and incidental findings detail ed above. Reviewed, dictated and finalized at location K. IMPRESSION: Short segment distal rectal wall edema, may reflect proctitis. Chronic and inci dental findings detailed above.
[2022-04-24 15:31] LABS: Basophils Absolute Auto 0.1 K/mm3 (0.0-0.1); Basophils Percent Auto 0.7 % (0.2-1.2); Eosinophils Absolute Auto 0.3 K/mm3 (0-0.3); Eosinophils Percent Auto 3.1 % (0-4.4); Hematocrit 39.3 % (42.0-52.0); Hemoglobin 12.5 g/dL (14.0-18.0); Immature Granulocyte Absolute 0.05 K/mm3 (0.00-0.031); Immature Granulocyte Percent A 0.6 % (0-0.5); Lymphocytes Percent Auto 10.7 % (18.3-44.2); Mean Corpuscular HGB Conc 31.8 g/dl (32-36); Mean Corpuscular Hemoglobin 30.4 pg (26-34); Mean Corpuscular Volume 95.6 fl (80-100); Mean Platelet Volume 8.9 fl (7.4-10.4); Monocytes Absolute Auto 0.5 K/mm3 (0.1-0.6); Monocytes Percent Auto 5.9 % (2.6-8.5); Neutrophils Absolute Auto 6.7 K/mm3 (1.3-6.7); Platelet Count Result 353 k/mm3 (150-375); Red Blood Count 4.11 M/mm3 (4.6-6.20); Red Cell Distribution Width 14.2 % (11.5-14.5); White Blood Count 8.4 K/mm3 (4.5-10.0)
[2022-04-24 15:41] LABS: INR 1.1; Prothrombin Time 13.3 Seconds (11.1-14.7)
[2022-04-24 15:42] LABS: Alanine Aminotransferase 10 U/L (6-50); Albumin Level 4.4 g/dL (3.5-5.1); Alkaline Phosphatase 138 U/L (38-126); Anion Gap 13 mmol/L (8-16); Aspartate Amino Transferase 23 U/L (17-59); Bilirubin,Total 0.7 mg/dL (0.2-1.3); Blood Urea Nitrogen 23 mg/dL (9-20); Calcium 9.4 mg/dL (8.4-10.2); Carbon Dioxide 25 mmol/L (22-30); Chloride 103 mmol/L (98-107); Estimated CRCL calculation 48 ml/min; Estimated Glomerular Filt Rate 53; Glucose 98 mg/dL (65-110); Partial Thromboplastin Time 36.5 SECONDS (22.3-36.8); Potassium 4.3 mmol/L (3.4-5.0); Sodium 141 mmol/L (137-145)
--- NOTE | 2022-04-24 19:44 | ED.GIBLEED ---
HPI - GI Bleed General Chief complaint: GI Bleed Stated complaint: BLOOD IN STOOL Time Seen by Provider: 04/24/22 19:29 History of Present Illness HPI Narrative: Patient is a 77-year-old male with a history of Parkinson's disease here for evaluation of blood in his stool for the past day. Patient states that he had two bowel movements in his depends that was bright red mixed throughout at his nursing facility today. Patient denies history of similar; does state that he has experienced scant bright red blood in toilet tissue with wiping that he has attributed to hemorrhoids, but has never had this large amount of blood. Patient has a history of CVA and is on Eliquis. Denies any abdominal pain, nausea, vomiting, fevers, chills, diarrhea. Related Data Home Medications Medication Instructions Recorded Confirmed carbidopa 25 mg-levodopa 100 mg 2 tablet PO QID 10/06/20 12/21/21 tablet pantoprazole 40 mg tablet,delayed 40 mg PO DAILY 11/03/21 12/21/21 release rasagiline 1 mg tablet 1 mg PO DAILY 11/03/21 12/21/21 apixaban 5 mg tablet (Eliquis) 5 mg PO BID 12/21/21 12/21/21 aspirin 81 mg tablet,delayed 81 mg PO DAILY 12/21/21 12/21/21 release atorvastatin 40 mg tablet 40 mg PO HS 12/21/21 12/21/21 famotidine 20 mg tablet 20 mg PO BID 12/21/21 12/21/21 polyethylene glycol 3350 17 gram 17 g PO DAILY 12/21/21 12/21/21 oral powder packet (Miralax) Allergies Allergy/AdvReac Type Severity Reaction Status Date / Time No Known Allergies Allergy Verified 11/03/21 09:50 Review of Systems Review of Systems: Gen: Denies fevers or chills Eyes: Denies eye pain or visual change ENT: Denies congestion Respiratory: Denies shortness of breath or cough CV: Denies chest pain or palpitations GI: Denies abdominal pain nausea, emesis or diarrhea : reports blood in stool. Denies burning, urgency, frequency or hematuria Musculoskeletal: Denies back pain or muscle pain Neuro: Denies numbness, tingling, weakness or focal weakness Skin: Denies rash Except as documented, all other systems reviewed and negative [facility] Past Medical History Medical History Chronic anemia Chronic kidney disease Complete heart block CVA (cerebral vascular accident) (11/02/21) Presented with right-sided weakness and was transferred to [facility] DVT (deep venous thrombosis) GERD (gastroesophageal reflux disease) History of cancer of kidney in adulthood Hyperlipidemia Parkinsons disease Small bowel obstruction (~10/2020) Syncope Surgical History Surgical History History of nephrectomy, left 2016 at [facility] renal carcinoma History of total right hip replacement History of total right knee replacement Family History Family History Mother Aneurysm Social History Social History (Updated 04/25/22 @ 02:01 by Jimena Gaviria RN) Social History: The patient is since approximately 2014. He has 3 children. He lived in his home home until October 2021 when he had his CVA. Since that time the patient has transition to assisted living. He ambulates with a walker. Code status: Full code (He would not want a trach or PEG. He does not want to continue living if he cannot communicate his desires and wishes.) Healthcare power of personal injury attorney: Gavino (youngest son) Smoking status: Never smoker Alcohol intake: former Alcohol use details: He rarely drinks alcohol and only in moderation. 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 Gender identity (if verbalized by the patient): Male Spiritual care concerns: No Agree to blood products: Yes Exam Narrative: APPEARANCE: Well appearing, no pain in distress, well-nourished. Head: Normocephalic and atraumatic. EYES: PERRLA
--- NOTE | 2022-04-24 22:40 | PM.IMHP ---
H&P: HPI History of Present Illness Date/Time: 04/24/22 22:40 Chief Complaint: BRBPR Narrative: This is a 77-year-old male with past medical history significant for recent stroke patient has been residing at a rehabilitation facility has had unintentional weight loss of 30+ lb due to poor oral intake did not like food at the facility, patient has been recently discharge home he presents to the emergency room due to episode of bright red blood per rectum states that this is the 1st time this happens to him denies any hematemesis, melena, changes in stool character, abdominal pain, nausea vomiting or diarrhea. Denies any shortness of breath cough sputum production, fevers, chills, lightheadedness, dizziness, syncope or near syncope. In emergency room digital rectal exam was positive for occult blood a hemoglobin was 12.5. patient is been admitted for further evaluation management and treatment. Review of Systems Review of Systems: BRBPR Constitutional: Constitutional: Denies chills, Denies fatigue, Denies fever(s), Denies lethargy, Denies malaise, Denies night sweats, Reports poor appetite and Reports weight loss Eyes: Eyes: Denies change in vision ENT: Denies dysphagia, Denies vertigo, Denies dizziness and Denies odynophagia Cardiovascular: Cardiovascular: Denies chest pain, Denies syncope, Denies irregular heart rhythm, Denies lightheadedness, Denies palpitations and Denies dyspnea on exertion Respiratory: Respiratory: Denies chest congestion, Denies cough and Denies dyspnea on exertion Gastrointestinal: Gastrointestinal: Denies abdominal pain, Denies melena, Reports hematochezia, Denies change in stool character, Denies GI cramping, Denies dyspepsia, Denies heartburn, Denies nausea, Denies vomiting and Denies hematemesis Genitourinary: Genitourinary: Denies dysuria Musculoskeletal: Musculoskeletal: Denies back pain, Denies joint swelling and Denies limited range of motion Integumentary/Breasts: Skin/Breast: Denies rash Neurologic: Denies vertigo, Denies dizziness, Denies focal weakness and Denies Sensory deficit (Neuro) Psychiatric: Psychiatric: Reports no additional psychiatric complaints and Reports as per HPI Endocrine: Endocrine: Denies cold intolerance, Denies fatigue, Denies flushing, Denies heat intolerance, Denies polyphagia, Denies polydipsia and Denies palpitations Hematologic/Lymphatic: Hematologic/Lymphatic: Reports no additional hematologic/lymphatic complaints and Reports as per HPI Allergic/Immunologic: Allergic/Immunologic: Reports no additional allergic/immunologic complaints and Reports as per HPI [facility] Past Medical History Medical History (Updated 04/26/22 @ 03:16 by Janie Damon MD) Anemia Blood thinned due to long-term anticoagulant use Chronic anemia Chronic kidney disease Complete heart block CVA (cerebral vascular accident) (11/02/21) Presented with right-sided weakness and [facility] D[facility] (deep [facility]) GERD (gastroesophageal reflux disease) History of cancer of kidney in adulthood Hyperlipidemia Parkinsons disease Rectal bleeding Small bowel obstruction (~10/2020) Syncope Surgical History Surgical History History of nephrectomy, left 2015 at [facility] renal carcinoma History of total right hip replacement History of total right knee replacement Family History Family History Mother Aneurysm Social History Social History (Updated 04/25/22 @ 02:01 by Jimena Gaviria RN) Social History: The patient is since approximately 2014. He has 3 children. He lived in his home home until October 2021 when he had his CVA. Since that time the patient has transition to assisted living. He ambulates with a walker. Code status: Full code (He would not want a trach or PEG. He does not want to continue living if he cannot communicate
[2022-04-24 23:50] LABS: SARS-CoV-2 RNA PCR Negative
[2022-04-25] VITALS (10 sets, daily range): BP systolic 111–164; BP diastolic 55–93; PULSE 60–94; RESP 16–24; TEMP 36.2–36.6; O2SAT 94–99; BMI 22.9
--- NOTE | 2022-04-25 01:20 | PC.NURSE ---
Pt ambulatory status: walks with walk short distances and otherwise uses an electric scooter.
--- NOTE | 2022-04-25 02:34 | ADMGEN ---
This patient, John Mitchell, was admitted to [facility] Surg Room 327-01. Patient/family oriented to hospital policies and general routines including ID bracelet, bed and alarms, visiting hours, pain management, procedures, bathroom and other care routines, personal items, smoking policy, room service/diet, and visiting hours. Information on how to activate the Rapid Response Team has been discussed. Patient/Family are encouraged to report perceived risks to care and to ask questions if they do not understand what they are told or what they should do.
[2022-04-25] MEDS: CARBIDOPA/LEVODOPA 25/100 MG TABLET 2 TABLET PO ×4 (08:55→20:35)
[2022-04-25] MEDS: FAMOTIDINE 20 MG TABLET PO ×2 (08:55→20:35)
[2022-04-25] MEDS: PANTOPRAZOLE 40 MG TABLET PO (08:55)
[2022-04-25] MEDS: polyethylene glycoL 3350 17 GM POWD.PACK PO (08:56)
--- NOTE | 2022-04-25 11:26 | WPDGICN ---
Assessment and Plan Assessment and plan (1) Rectal bleeding: Code(s): K62.5 - Hemorrhage of anus and rectum Status: Acute Assessment and Plan: patient is agreeable to have colonoscopy tomorrow, will assess if proctitis, etc (2) Acute proctitis: Code(s): K62.89 - Other specified diseases of anus and rectum Status: Acute Assessment and Plan: based on ct scan colonoscopy tomorrow no diarrhea (3) CVA (cerebral vascular accident): Onset Date: 11/02/21 Code(s): I63.9 - Cerebral infarction, unspecified Status: Acute (4) Parkinsons disease: Code(s): G20 - Parkinson's disease Status: Chronic (5) Blood thinned due to long-term anticoagulant use: Code(s): Z79.01 - USP (current) use of anticoagulants Status: Acute Assessment and Plan: on hold (6) Anemia: Code(s): D64.9 - Anemia, unspecified Status: Acute Assessment and Plan: hb 12, monitor GI Consult Note Consult date/time: 04/25/22 11:26 HPI: John Mitchell is a 77 year old male with history of Parkinon on medication, CVA on eliquis and aspirin here with new onset large amount of rectal bleeding after having BM yesterday and staff at assisted living facility was informed. He had scant amount of bright red blood in toilet tissue with wiping previously but has never had this large amount of blood.? His last colonoscopy 5 years with polyp removed. CT scan reviewed, Short segment distal rectal wall edema, may reflect proctitis. Denies fever, diarrhea or abdominal pain, he is doing ok now. Review of Systems Review of Systems: Gen: Denies fevers or chills Eyes: Denies eye pain or visual change ENT: Denies congestion Respiratory: Denies shortness of breath or cough CV: Denies chest pain or palpitations GI: Denies abdominal pain nausea, emesis or diarrhea : reports blood in stool. Denies burning, urgency, frequency or hematuria Musculoskeletal: Denies back pain or muscle pain Neuro: Denies numbness, tingling, weakness or focal weakness Skin: Denies rash Except as documented, all other systems reviewed and negative [facility] Past Medical History Medical History (Updated 04/25/22 @ 14:09 by Duane Velasquez MD) Anemia Blood thinned due to long-term anticoagulant use Chronic anemia Chronic kidney disease Complete heart block CVA (cerebral vascular accident) (11/02/21) Presented with right-sided weakness and was [facility] D[facility] (deep venous thrombosis) GERD (gastroesophageal reflux disease) History of cancer of kidney in adulthood Hyperlipidemia Parkinsons disease Rectal bleeding Small bowel obstruction (~10/2020) Syncope Surgical History Surgical History History of nephrectomy, left [address] [facility] renal carcinoma History of total right hip replacement History of total right knee replacement Family History Family History Mother Aneurysm Social History Social History (Updated 04/25/22 @ 02:01 by Jimena Gaviria RN) Social History: The patient is since approximately 2014. He has 3 children. He lived in his home home until October 2021 when he had his CVA. Since that time the patient has transition to assisted living. He ambulates with a walker. Code status: Full code (He would not want a trach or PEG. He does not want to continue living if he cannot communicate his desires and wishes.) Healthcare power of vp genetic: Gavino (youngest son) Smoking status: Never smoker Alcohol intake: former Alcohol use details: He rarely drinks alcohol and only in moderation. 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 Gender identity (if verbalized by the patient): Male Spiritual care concerns: No Agree to blood produc
--- NOTE | 2022-04-25 17:57 | PM.IMPN ---
Progress Note: A&P Assessment and Plan (1) Rectal bleeding: Code(s): K62.5 - Hemorrhage of anus and rectum Status: Acute Assessment and Plan: GI consult appreciated, colonoscopy scheduled for tomorrow (2) Acute proctitis: Code(s): K62.89 - Other specified diseases of anus and rectum Status: Acute (3) Parkinsons disease: Code(s): G20 - Parkinson's disease Status: Chronic Assessment and Plan: Continue Sinemet, stable (4) CVA (cerebral vascular accident): Onset Date: 11/02/21 Code(s): I63.9 - Cerebral infarction, unspecified Status: Acute Assessment and Plan: History of CVA with right-sided deficits in October 2021 (5) Complete heart block: Code(s): I44.2 - Atrioventricular block, complete Status: Acute Assessment and Plan: Status post pacemaker implantation Plan DVT prophylaxis with SCDs GI prophylaxis not indicated Code status full code Subjective Date/time seen: 04/25/22 17:57 Interval history: Patient has not had any further blood in his stool since arrival to the hospital. No overnight events noted. No chest pain or shortness of breath. No nausea, vomiting or diarrhea. No fevers or chills. Review of Systems Review of Systems: 12 point review of systems was assessed and was negative except as noted in the HPI Exam Narrative: General: No acute distress, alert and oriented per baseline HEENT: Atraumatic, normocephalic, mucous membranes moist CV: Regular rate and rhythm, S1, S2 Lungs: Clear to auscultation bilaterally, no rales or crackles noted, no wheezes, good air entry Abdomen: Soft, nontender, nondistended Extremities: Normal to inspection Skin: No rashes noted, no lesions or wounds seen Psych: Euthymic, normal affect Objective Data Vital Signs Vital Signs: Vital Signs - 24 hr 04/24/22 19:16 04/24/22 19:30 04/24/22 19:31 Temperature Pulse Rate 81 83 Respiratory Rate 21 H 17 Blood Pressure 134/106 H 144/81 H Pulse Oximetry 77 L 95 98 Oxygen Delivery 04/24/22 19:46 04/24/22 20:02 04/24/22 20:16 Temperature Pulse Rate Respiratory Rate Blood Pressure 175/66 H 163/78 H 157/76 H Pulse Oximetry 97 94 96 Oxygen Delivery 04/24/22 20:31 04/24/22 21:00 04/24/22 21:01 Temperature Pulse Rate 75 85 73 Respiratory Rate 11 L 21 H Blood Pressure 168/78 H 157/82 H 171/81 H Pulse Oximetry 96 100 98 Oxygen Delivery 04/24/22 21:16 04/24/22 21:31 04/24/22 21:46 Temperature Pulse Rate 70 72 82 Respiratory Rate 23 H 20 15 Blood Pressure 156/58 H 146/64 H 148/52 H Pulse Oximetry 93 93 96 Oxygen Delivery 04/24/22 22:01 04/24/22 22:16 04/24/22 22:30 Temperature Pulse Rate 77 73 69 Respiratory Rate 18 14 14 Blood Pressure 134/87 150/72 H Pulse Oximetry 93 84 L Oxygen Delivery 04/24/22 22:31 04/24/22 22:45 04/24/22 22:46 Temperature Pulse Rate 74 74 78 Respiratory Rate 20 14 21 H Blood Pressure 155/73 H 160/76 H Pulse Oximetry 96 95 Oxygen Delivery 04/24/22 23:00 04/24/22 23:01 04/24/22 23:15 Temperature Pulse Rate 71 74 67 Respiratory Rate Blood Pressure 158/73 H Pulse Oximetry 96 96 95 Oxygen Delivery 04/24/22 23:16 04/24/22 23:30 04/24/22 23:31 Temperature Pulse Rate 71 70 69 Respiratory Rate 21 H 24 H Blood Pressure 149/67 H 166/62 H Pulse Oximetry 92 95 97 Oxygen Delivery 04/24/22 23:45 04/24/22 23:46 04/25/22 00:02 Temperature Pulse Rate 74 77 67 Respiratory Rate 11 L Blood Pressure 183/165 H 130/93 H Pulse Oximetry 96 95 97 Oxygen Delivery 04/25/22 00:16 04/25/22 00:31 04/25/22 00:46 Temperature Pulse Rate 74 71 69 Respiratory Rate 22 H 17 19 Blood Pressure 152/75 H 155/71 H 164/82 H Pulse Oximetry 96 97 96 Oxygen Delivery 04/25/22 01:01 04/25/22 02:03 04/25/22 01:40 Temperature 97.1 F L Pulse Rate 71 75 Respiratory Rate 16 16 Blood Press
[2022-04-25] MEDS: polyethylene glycoL 3350 238 GM BOTTLE PO (17:59)
[2022-04-25] MEDS: BISACODYL 5 MG TABLET EC 20 MG PO (17:59)
[2022-04-25] MEDS: ATORVASTATIN 40 MG TABLET PO (20:35)
[2022-04-26] VITALS (34 sets, daily range): BP systolic 69–159; BP diastolic 36–104; PULSE 70–99; RESP 13–99; TEMP 35.7–37.4; O2SAT 20–100
[2022-04-26] MEDS: FAMOTIDINE 20 MG TABLET PO (08:51)
[2022-04-26] MEDS: PANTOPRAZOLE 40 MG TABLET PO (08:51)
[2022-04-26] MEDS: LACTATED RINGERS 1,000 ML 150 ML IV CONT ×2 (09:18→11:35)
[2022-04-26 10:27] LABS: Hematocrit 37.8 % (42.0-52.0); Hemoglobin 12.3 g/dL (14.0-18.0)
--- NOTE | 2022-04-26 11:36 | SUR.PHASEII ---
Dr. Grove administered a total of 20mg of Ephedrine. 10mg at a time.
--- NOTE | 2022-04-26 11:54 | WPDCNINT ---
Assessment and Plan Assessment and plan (1) GI bleeding: Code(s): K92.2 - Gastrointestinal hemorrhage, unspecified Status: Acute Assessment and Plan: Patient presented bright red blood per rectum. Patient underwent colonoscopy today which showed diverticulosis but with no active bleeding. General surgery has been consulted patient is going for a tagged red cell scan to look for any other site of bleeding Continue serial hemoglobin monitoring Continue to hold aspirin and Eliquis. Coags reviewed Transfuse if needed IV fluids to be continue (2) Hypotension: Code(s): I95.9 - Hypotension, unspecified Status: Acute Assessment and Plan: Patient was hypotensive during the colonoscopy procedure which could be likely secondary to sedation. Since then blood pressure appears to be improved and now is in acceptable range I will Continue IV fluids and give give 500 mL bolus Monitor closely (3) Anemia: Code(s): D64.9 - Anemia, unspecified Status: Acute Assessment and Plan: See above (4) Diverticulosis: Code(s): K57.90 - Diverticulosis of intestine, part unspecified, without perforation or abscess without bleeding Status: Acute Assessment and Plan: See above (5) Blood thinned due to long-term anticoagulant use: Code(s): Z79.01 - retirement (current) use of anticoagulants Status: Acute Assessment and Plan: Continue to hold ASA and Eliquis (6) GERD (gastroesophageal reflux disease): Code(s): K21.9 - Gastro-esophageal reflux disease without esophagitis Status: Acute Assessment and Plan: Continue PPI Plan DVT prophylaxis -SCDs Stress ulcer prophylaxis -PPI Nutrition - NPO Code Status - Full Code [employer]ining [employer] Supervisor Consult Note Consult date: 04/26/22 Reason for consult: GI Bleeding, Hypotension HPI: John Mitchell is a 77 year old male with past medical history significant for recent stroke patient has been residing at a rehabilitation facility presented to the emergency room on 04/24 due to episode of bright red blood per rectum.? In emergency room digital rectal exam was positive for occult blood a hemoglobin was 12.5. patient was admitted for further evaluation management and treatment. CT A/P showed Short segment distal rectal wall edema, may reflect proctitis. Chronic and incidental findings detailed above. GI consulted and pt today underwent colonoscopy which showed diverticulosis with no obvious bleeding. During procedure pts BP was soft. pt now admitted to ICU for closer monitoring Patient at this time states that he does not have any complaints. Review of system was positive bright red blood per rectum he presented with, weakness on the right side from his past stroke. All the systems were reviewed and were negative Review of Systems Review of Systems: All systems reviewed & are unremarkable except as noted in HPI and below (HPI) [facility] Past Medical History Medical History Anemia Blood thinned due to long-term anticoagulant use Chronic anemia Chronic kidney disease Complete heart block CVA (cerebral vascular accident) (11/02/21) Presented with right-sided weakness and was transferred to [facility] DVT (deep venous thrombosis) GERD (gastroesophageal reflux disease) History of cancer of kidney in adulthood Hyperlipidemia Parkinsons disease Rectal bleeding Small bowel obstruction (~10/2020) Syncope Surgical History Surgical History History of nephrectomy, left 2015 at [facility] renal carcinoma History of total right hip replacement History of total right knee replacement Family History Family History Mother Aneurysm Social History Social History Social History: The patient is since approximately 201
--- NOTE | 2022-04-26 12:00 | SUR.PHASEII ---
Per Dr. Mata, patient needs to be transferred to ICU.
--- NOTE | 2022-04-26 12:32 | PC.NURSE ---
This patient, John Mitchell, was transferred to [icu ] on 04/26/22 at 1230. Personal belongings sent with patient. Report given to [zane]. Appropriate documentation sent with patient.
--- NOTE | 2022-04-26 12:41 | PC.NURSE ---
Pt received from GI Lab post colonoscopy. Report received from DIDIER Miller @ [phone].
[2022-04-26] MEDS: LACTATED RINGERS 500 ML 999 ML IV CONT (13:05)
[2022-04-26] MEDS: ONDANSETRON INJ 4 MG/2 ML VIAL IV PUSH (13:35)
[2022-04-26] MEDS: LACTATED RINGERS 1,000 ML 999 ML IV CONT (14:07)
--- NOTE | 2022-04-26 14:28 | PM.CNGS ---
Assessment and Plan Assessment and plan (1) GI bleeding: Code(s): K92.2 - Gastrointestinal hemorrhage, unspecified Status: Acute Assessment and Plan: Colonoscopy today showed diverticulosis with stigmata of bleeding possibly in the ascending colon. He became hypotensive in the colonoscopy and continues to be hypotensive despite multiple IV fluid boluses. He is now requiring vasopressor support in the ICU. The tagged RBC nuclear med scan showed active bleeding in the right abdomen. We would recommend urgent transfer to a tertiary care facility where IR would be available for angiographic therapies. At this facility, we would only be able to offer more invasive surgical treatment. Given his Parkinson's disease and other comorbidities, he would be a high risk surgical candidate. Discussed this with the Hospitalist and Tailor Helper. He has been accepted to [facility]. Would continue with medical management and trying to stabilize the patient for transfer. Agree with the 2 units of PRBCs that have been ordered. Keep Eliquis on hold. Will monitor the patient's response to transfusions and medical management in case he becomes unstable while awaiting transfer. Thank you for allowing us to see the patient in consultation and we will continue to follow along with you. 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 (5) Anemia: Code(s): D64.9 - Anemia, unspecified Status: Acute (6) CVA (cerebral vascular accident): Onset Date: 11/02/21 Code(s): I63.9 - Cerebral infarction, unspecified Status: Acute Assessment and Plan: CVA at the end of October of 2021. (7) Parkinsons disease: Code(s): G20 - Parkinson's disease Status: Chronic (8) Chronic kidney disease: Qualifiers: Chronic kidney disease stage: stage 3 (moderate) Chronic kidney disease stage 3 subtype: stage 3b (GFR 30-44) Qualified Code(s): N18.32 - Chronic kidney disease, stage 3b Code(s): N18.9 - Chronic kidney disease, unspecified Status: Chronic (9) Pacemaker: Code(s): Z95.0 - Presence of cardiac pacemaker Status: Acute Plan I have discussed the patient's case and plan of care with Dr. Whyte. History of Present Illness Consult details Consult date: 04/26/22 Reason for consult: other (Diverticular bleeding) Requesting physician: Duane Velasquez MD Narrative: This is a 77-year-old man with a history of Parkinson's and recent stroke, who presented to the ER 2 days ago with complaints of rectal bleeding. He had a CVA at the end of October and is currently on Eliquis. He has been residing at a rehabilitation facility. In the ER, labs showed hemoglobin of 12.5 and was positive for occult blood on digital rectal exam. CT scan of abdomen and pelvis showed a short segment of distal rectal wall edema, may reflect proctitis. He was admitted to the hospitalist. GI was consulted and he was taken for a colonoscopy today. Colonoscopy showed no signs of colitis or proctitis. There were findings of a large amount of blood with clots seen throughout the colon. Multiple diverticula were present with stigmata of bleeding from the diverticula. It was difficult to tell what area of the colon was bleeding, but it appeared likely to be the ascending colon. During his colonoscopy, the patient also became hypotensive. He was then subsequently transferred to ICU and treated with IV fluids. His blood pressure improved. He was then taken down for a nuclear med tagged red blood cell scan. He again became
--- NOTE | 2022-04-26 14:57 | PM.EVENT ---
Event Note Event Note Event Note: Patient had another episode of bloody bowel movement while getting tagged RBC scan. Transient drop in blood pressure. IV fluid bolus started on blood pressure recovered. Will send a CBC now. Results of the scan are pending. Discussed with general surgery nurse practitioner. Called [facility] transfer line for transfer to tertiary facility for angiogram and embolization. Waiting for call back.
[2022-04-26 15:08] LABS: Hematocrit 27.3 % (42.0-52.0); Hemoglobin 8.8 g/dL (14.0-18.0)
[2022-04-26] MEDS: LACTATED RINGERS 1,000 ML 75 ML IV CONT ×2 (15:10→16:12)
[2022-04-26] MEDS: MORPHINE SULFATE (*CRX) 2 MG/ML INJ IV PUSH ×2 (15:27→15:40)
--- NOTE | 2022-04-26 15:59 | WPDPROCEDUR ---
Procedures Central Line Placement Left Femoral: Central Line Date: 04/26/22 Central Line Time: 15:00 Discussed w/ the patient/family/POA,the placement of a central venous catheter, including its clinical necessity/indication & associated potential risks, benifits and alternatives.: Yes The patient/family/POA understand(s) and acknowledge(s) the need to proceed with central venous catheter insertion as an important element of the patient's clinical management.: Yes Consent: I have discussed with the patient and/or surrogate, the non-emergent placement of a central venous catheter, including its clinical necessity/indication and associated potential risks and complications. The patient and/or surrogate understand(s) and acknowledge(s) the need to proceed with central venous catheter insertion as an important element of the patient's clinical management. Time Out Performed: Yes Patient Position: supine Patient placed on monitor/pulse ox: Yes Provider Prep: mask, sterile gown, sterile gloves, Max. sterile barrier precautions, cap and hand hygiene with conventional soap/water or alcohol based hand rub Central line prep: Povidone-Iodine 1% Local anesthesia used: lidocaine 1% Amount of anesthesia used (ml): 5 Sterile US Technique with sterile gel/sterile probe covers: Yes Central line lumen inserted: triple Length (cm): 16 Depth of Insertion (cm): 16 Post Procedure: sutured in place, good blood return, all ports aspirated, flushed, capped, transparent dressing and aseptic technique maintained throughout procedure Patient tolerated procedure: well Complications: none
--- NOTE | 2022-04-26 16:00 | P.PNCROSS_ITS ---
Event Note Event Note Event Note: Despite fluid bolus patient continued to be hypertensive. I started patient on Alex-Synephrine infusion. His repeat hemoglobin came back at 8.8 which had dropped from 12.3. 2 units of PRBC stat ordered and the transfusion has been started. Patient was hypertensive and another 1 L saline bolus was started. I placed a left femoral central venous catheter emergently for better IV access for blood transfusion and vasopressor administration. I spoke to Radiology and his GI bleed scan was positive with active hemorrhage in right abdomen could be due to duodenum, transverse colon or small bowel. Results also discussed with Dr. Mata with GI. I spoke to Dr. Lynne with intensive care at [facility] and they have accepted the patient for angiogram and embolization. Patient will be transferred once transportation is available. I have spoken to both patient and patient's son who are both agreeable transfer. Total Critical Care Time - 60 minutes except separately billed procedures and initial consultation Due to a high probability of clinically significant, life threatening deterioration, the patient required my highest level of preparedness to intervene emergently and I personally spent this critical care time directly and personally managing the patient. This critical care time included obtaining a history; examining the patient; pulse oximetry; ordering and review of studies; arranging urgent treatment with development of a management plan; evaluation of patient's response to treatment; frequent reassessment; and discussions with other providers. It was exclusive of separately billable procedures and treating other patients and teaching time. Please see Assessment and Plan section and the rest of the note for further information on patient assessment and treatment
--- NOTE | 2022-04-26 16:05 | PM.TDS ---
Transfer Discharge Sum: Prov Provider Date of admission: 04/26/22 15:19 Primary care physician: Brandon Mendoza, MBlayne. Admitting clinician: Janie Damon MD Consults: 04/24/22 Consult to Physician Routine Comment: Consulting Provider: Duane Velasquez Reason for consultation: proctitis Has provider been notified: Yes 04/26/22 12:22 Consult to Physician Routine Comment: talked with office @ [phone] (, ) Consulting Provider: Drew Whyte call center operator/MD group to consult: surgery Reason for consultation: hematochezia due to diverticular bleeding Has provider been notified: Yes 04/26/22 12:23 Consult to Physician Routine Comment: Consulting Provider: Vito Rangel Reason for consultation: Transfer to ICU Has provider been notified: Yes DS: Admitting Diagnosis Discharge Date 04/26/22 Admitting Diagnosis GIB, proctitis DS: Discharge Diagnosis Discharge Diagnosis (1) GI bleeding: Code(s): K92.2 - Gastrointestinal hemorrhage, unspecified Status: Acute Assessment and Plan: Patient presented bright red blood per rectum. Patient underwent colonoscopy today which showed diverticulosis but with no active bleeding. General surgery has been consulted patient is going for a tagged red cell scan to look for any other site of bleeding Continue serial hemoglobin monitoring Continue to hold aspirin and Eliquis. Coags reviewed Transfuse if needed IV fluids to be continue 04/26: Patient to be transferred to another hospital for IR embolization versus total colectomy due to worsening hemorrhage after coloscopy now in shock with persistent bleeding with hypotension that was likely worsened with the anesthesia given during the procedure. (2) Hypotension: Code(s): I95.9 - Hypotension, unspecified Status: Acute Assessment and Plan: Patient was hypotensive during the colonoscopy procedure which could be likely secondary to sedation. Since then blood pressure appears to be improved and now is in acceptable range I will Continue IV fluids and give give 500 mL bolus Monitor closely To be transfused and norepinephrine started. Awaiting transfer. (3) Anemia: Code(s): D64.9 - Anemia, unspecified Status: Acute Assessment and Plan: See above (4) Diverticulosis: Code(s): K57.90 - Diverticulosis of intestine, part unspecified, without perforation or abscess without bleeding Status: Acute Assessment and Plan: See above (5) Blood thinned due to long-term anticoagulant use: Code(s): Z79.01 - rn long term care (current) use of anticoagulants Status: Acute Assessment and Plan: Continue to hold ASA and Eliquis (6) GERD (gastroesophageal reflux disease): Code(s): K21.9 - Gastro-esophageal reflux disease without esophagitis Status: Acute Assessment and Plan: Continue PPI Plan DVT prophylaxis -SCDs Stress ulcer prophylaxis -PPI Nutrition - NPO Code Status - Full Code Transfer Discharge Sum: Med Medications Active and Home Medications: Home Medications carbidopa 25 mg-levodopa 100 mg tablet 2 tablet PO QID 10/06/20 [History Confirmed 04/25/22] pantoprazole 40 mg tablet,delayed release 40 mg PO DAILY 11/03/21 [History Confirmed 04/25/22] rasagiline 1 mg tablet 1 mg PO DAILY 11/03/21 [History Confirmed 04/25/22] apixaban 5 mg tablet (Eliquis) 5 mg PO BID 12/21/21 [History Confirmed 04/25/22] aspirin 81 mg tablet,delayed release 81 mg PO DAILY 12/21/21 [History Confirmed 04/25/22] atorvastatin 40 mg tablet 40 mg PO HS 12/21/21 [History Confirmed 04/25/22] famotidine 20 mg tablet 20 mg PO BID 12/21/21 [History Confirmed 04/25/22] polyethylene glycol 3350 17 gram oral powder packet (Miralax) 17 g PO DAILY 12/21/21 [History Confirmed 04/25/22] hydrocodone 5 mg-acetaminophen 325 mg tablet 1 tablet PO Q8H PRN Pain Rated 4-6 5 days #15 tabs 12/25/21 [Rx Confirmed 04/25/22] Active Medications
[2022-04-26] MEDS: NOREPINEPHRINE 8 MG/D5W 250 ML 8 MG/250 ML BAG 9.38 MG IV CONT (16:09)
[2022-04-26] MEDS: SODIUM CHLORIDE 0.9% IV 250 ML 30 ML IV CONT (16:10)
--- NOTE | 2022-04-26 16:33 | PC.NURSE ---
First temperature on blood vitals is incorrect, unable to edit vital signs. Actual temp was 98.8 axillary. Temp magaña was placed and was not done registering temperature when charted.
--- NOTE | 2022-04-26 16:34 | PC.NURSE ---
Morphine 2mg IVP was given at 1527 and again at 1540 per verbal order from Dr. Rangel during femoral line placement. This was incorrectly documented under the order for Morphine 2mg IVP q2h for pain.
--- NOTE | 2022-04-26 17:14 | PC.NURSE ---
Pt transferred via [facility] to [facility]. Report called to DIDIER Sy. Levophed and LR infusing
== END 2022-04-26 17:15 | disposition short-term general hospital (02) | DRG 377 ==
LOC: ANHED 19:45 → ANH3MEDSUR 04-25 00:50 → ANHICU 04-26 12:33
PROVIDERS: Emergency Medicine; Internal Medicine; Internal Medicine Gastroenterology; Physician Assistant; Admitting Provider Internal Medicine; Emergency Provider Emergency Medicine; PCP Family Medicine; Visit Provider Family Medicine
PROC: 0DJD8ZZ Inspection of Lower Intestinal Tract, Via Natural or Artificial Opening Endoscopic (ICD-10-PCS; CPT 45378; principal; 2022-04-26 10:45)
DX: K57.31 Diverticulosis of large intestine without perforation or abscess with bleeding (principal); R57.1 Hypovolemic shock; R57.8 Other shock; D62 Acute posthemorrhagic anemia; N18.32 Chronic kidney disease, stage 3b; G20 Parkinson's disease; K21.9 Gastro-esophageal reflux disease without esophagitis; E78.5 Hyperlipidemia, unspecified; Z96.641 Presence of right artificial hip joint; Z96.651 Presence of right artificial knee joint; Z20.822 Contact with and (suspected) exposure to COVID-19; Z86.73 Personal history of transient ischemic attack (TIA), and cerebral infarction without residual deficits; Z95.0 Presence of cardiac pacemaker; Z79.82 Long term (current) use of aspirin; Z79.01 Long term (current) use of anticoagulants; Z86.718 Personal history of other venous thrombosis and embolism; Z85.528 Personal history of other malignant neoplasm of kidney; Z90.5 Acquired absence of kidney
CPT/HCPCS: 36415; 36430; 74177; 78278; 80053; 85014; 85018; 85025; 85610; 85730; 86850; 86900; 86901; 86920; 99285; A9270; A9560; C1751; C9803; G0378; J0171; J2270; J2370; J2405; J2704; J7030; J7050; J7060; J7120; P9016; Q9967; U0003; U0005